=== PATIENT | male | born 1945 | race Caucasian/White ===

== ENCOUNTER → 2017-11-17 | Outpatient (CLI) | payer OTHER ==
[~2017-11-17] MED LIST: 'TENORMIN50 MG PO; ACETAMINOPHEN-O1 TAB PO; AMBIEN10 M1 PO; ASPIRIN81 M1 PO; CARVEDILOL25 MG PO; CIPROFLOXACIN500 MG PO; COLACE100 MG PO; COREG25 MG PO; CRESTOR20 M1 PO; CRESTOR20 MG PO; Clopidogrel75 MG PO; DOCUSATE SODIU100 M2 PO; ECOTRIN ADULT L81 MG PO; FLAGYL500 MG PO; IMDUR SA60 M1 PO; Imdur SA60 MG PO; KLOR-CON 1010 ME1 PO; LANTUS100 U/ML SC; LASIX40 MG PO; LIPITOR80 MG PO; LISINOPRIL5 MG PO; OXYCODONE5 M1 PO; PANTOPRAZOLE SO40 MG PO; PERCOCET 325 MG1 TA7 PO; PLAVIX75 M1 PO; POTASSIUM CHLO10 ME5 PO; PRINIVIL5 M1 PO; RANEXA500 M1 PO; TRAMADOL HCL50 MG PO; ULTRAM50 MG PO; ZESTRIL,PRINIVI10 MG PO; Zofran4 MG PO
== END | disposition home or self-care (01) ==
LOC: US 11-11 11:43
DX: N28.1 Cyst of kidney, acquired (principal); N18.4 Chronic kidney disease, stage 4 (severe)

== ENCOUNTER 2018-02-09 06:52 | Emergency (ER) | payer OTHER ==
[~2018-02-09] VITALS: Ht 180.3 cm; Wt 90.7 kg
[2018-02-09] MEDS ORDERED: Motrin,Rufen800 MG PO (09:35)
[2018-02-09] MEDS ORDERED: PLAVIX75 M1 PO (19:30)
[2018-02-09] MEDS ORDERED: LANTUS SOL100 UNIT/1 SQ (19:30)
[2018-02-09] MEDS ORDERED: CARVEDILOL25 MG PO (19:30)
[2018-02-09] MEDS ORDERED: PANTOPRAZOLE SO40 MG PO (19:30)
[2018-02-09] MEDS ORDERED: LISINOPRIL2.5 MG PO (19:31)
[2018-02-09] MEDS ORDERED: KLOR-CON 1010 ME1 PO (19:31)
[2018-02-09] MEDS ORDERED: LASIX40 MG PO (19:31)
[2018-02-09] MEDS ORDERED: ISOSORBIDE MONO60 MG PO (19:32)
[2018-02-09] MEDS ORDERED: ASPIRIN CHEWABL81 MG PO (19:32)
[2018-02-09] MEDS ORDERED: LIPITOR80 MG PO (19:32)
[2018-02-09] MEDS ORDERED: DULCOLAX5 M1 PO (19:32)
[2018-02-10] MEDS ORDERED: HEPARIN 2,2500 UNIT/ IV (09:52)
== END 2018-02-09 09:51 | disposition home or self-care (01) ==
LOC: ED 06:52
DX: S63.502A Unspecified sprain of left wrist, initial encounter (principal); I50.9 Heart failure, unspecified; Z79.899 Other long term (current) drug therapy; Z79.82 Long term (current) use of aspirin; W01.0XXA Fall on same level from slipping, tripping and stumbling without subsequent striking against object, initial encounter; Y93.89 Activity, other specified; Y92.89 Other specified places as the place of occurrence of the external cause; Y99.8 Other external cause status

== ENCOUNTER 2018-02-09 19:16 | Inpatient (IN) | payer OTHER, MEDICARE ==
[~2018-02-09] VITALS: Ht 180.3 cm; Wt 89.0 kg
--- NOTE | ~2018-02-09 | EKG ---
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
--- NOTE | ~2018-02-09 | EKG ---
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
--- NOTE | ~2018-02-09 | EKG ---
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
--- NOTE | ~2018-02-09 | EKG ---
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
[~2018-02-09 19:16] MED LIST changes: +Motrin,Rufen800 MG PO
[2018-02-09 19:17] VITALS: BP 149/77
[2018-02-09] MEDS ORDERED: PLAVIX75 M1 PO (19:30)
[2018-02-09] MEDS ORDERED: PANTOPRAZOLE SO40 MG PO (19:30)
[2018-02-09] MEDS ORDERED: CARVEDILOL25 MG PO (19:30)
[2018-02-09] MEDS ORDERED: LANTUS SOL100 UNIT/1 SQ (19:30)
[2018-02-09] MEDS ORDERED: KLOR-CON 1010 ME1 PO (19:31)
[2018-02-09] MEDS ORDERED: LASIX40 MG PO (19:31)
[2018-02-09] MEDS ORDERED: LISINOPRIL2.5 MG PO (19:31)
[2018-02-09] MEDS ORDERED: DULCOLAX5 M1 PO (19:32)
[2018-02-09] MEDS ORDERED: ASPIRIN CHEWABL81 MG PO (19:32)
[2018-02-09] MEDS ORDERED: ISOSORBIDE MONO60 MG PO (19:32)
[2018-02-09] MEDS ORDERED: LIPITOR80 MG PO (19:32)
[2018-02-09 19:38] LABS: HEMATOCRIT 38.8 % (42.0-52.0); HEMOGLOBIN 13.2 g/dl (14.0-18.0); MEAN CORPUSCULAR HGB 30.6 pg (27.0-31.0); MEAN PLATELET VOLUME 9.4 fl (9.6-12.3); PLATELET COUNT AUTOMATED 286 10*3/uL (130-400); RED BLOOD COUNT 4.31 10*6/uL (4.50-5.90); RED CELL DISTRI WIDTH 12.8 % (0-14.5); WHITE BLOOD COUNT 14.2 10*3/uL (4.8-10.8)
[2018-02-09 19:51] LABS: ACT PARTIAL THROMBO TIME 24.4 SECONDS (20.8-31.5)
[2018-02-09 19:54] LABS: ALBUMIN 3.2 gm/dl (3.1-4.5); CREATININE 2.3 mg/dL (0.70-1.30); POTASSIUM 4.4 mmol/L (3.5-5.1); TOTAL PROTEIN 7.4 gm/dL (6.4-8.2); TROPONIN I 0.015 ng/ml (<0.045)
[2018-02-09 20:03] LABS: TOTAL CELLS COUNTED 100 #CELLS
[2018-02-09 20:04] LABS: PLATELET SUFFICIENCY NORMAL (NORMAL)
[2018-02-09 20:08] VITALS: BP 142/76
[2018-02-09 20:55] VITALS: BP 153/82
[2018-02-10] VITALS: BP 115/57
[2018-02-10 01:24] LABS: BASO # 0.1 10*3/uL (0.0-0.1); BASO % 0.4 % (0.0-1.0); EOS % 0.2 % (1.0-4.0); HEMATOCRIT 36.6 % (42.0-52.0); HEMOGLOBIN 12.4 g/dl (14.0-18.0); LYMPH # 1.3 10*3/uL (1.3-4.4); LYMPH % 11.4 % (27.0-41.0); MEAN CELL VOLUME 89.7 fl (80.0-94.0); MEAN CORPUSCULAR HGB 30.4 pg (27.0-31.0); MEAN CORPUSCULAR HGB CONC 33.9 g/dl (33.0-37.0); MEAN PLATELET VOLUME 9.2 fl (9.6-12.3); MONO # 1.1 10*3/uL (0.1-1.0); MONO % 9.2 % (3.0-9.0); NEUT # 9.1 10*3/uL (2.3-7.9); NEUT % 78.4 % (47.0-73.0); PLATELET COUNT AUTOMATED 257 10*3/uL (130-400); RED BLOOD COUNT 4.08 10*6/uL (4.50-5.90); RED CELL DISTRI WIDTH 12.7 % (0-14.5); WHITE BLOOD COUNT 11.6 10*3/uL (4.8-10.8)
[2018-02-10 01:37] LABS: CREATININE 2.23 mg/dL (0.70-1.30); POTASSIUM 3.9 mmol/L (3.5-5.1)
[2018-02-10 01:41] LABS: FREE T4 0.78 ng/dl (0.76-1.46); PHOSPHOROUS 2.4 mg/dL (2.5-4.9)
[2018-02-10 01:48] LABS: THYROID STIM HORMONE (HS) 1.5 uIU/ml (0.358-4.75)
[2018-02-10 04:00] VITALS: BP 90/66
[2018-02-10 07:08] LABS: VITAMIN D, 25-HYDROXY 28.3 ng/mL (30-100)
[2018-02-10 08:00] VITALS: BP 114/60
[2018-02-10] MEDS ORDERED: HEPARIN 2,2500 UNIT/ IV (09:52)
== END 2018-02-10 11:23 | disposition short-term general hospital (02) | DRG 280 ==
LOC: ED 19:16 → EDHOLD 20:16 → 4E 20:32
PROVIDERS: Emergency Medicine; Student in an Organized Health Care Education/Training Program
DX: I21.4 Non-ST elevation (NSTEMI) myocardial infarction (principal); N17.0 Acute kidney failure with tubular necrosis; E87.1 Hypo-osmolality and hyponatremia; I50.42 Chronic combined systolic (congestive) and diastolic (congestive) heart failure; I42.9 Cardiomyopathy, unspecified; I13.0 Hypertensive heart and chronic kidney disease with heart failure and stage 1 through stage 4 chronic kidney disease, or unspecified chronic kidney disease; I25.10 Atherosclerotic heart disease of native coronary artery without angina pectoris; E78.5 Hyperlipidemia, unspecified; E11.65 Type 2 diabetes mellitus with hyperglycemia; F17.200 Nicotine dependence, unspecified, uncomplicated; D72.829 Elevated white blood cell count, unspecified; D64.9 Anemia, unspecified; E87.8 Other disorders of electrolyte and fluid balance, not elsewhere classified; K21.9 Gastro-esophageal reflux disease without esophagitis; I44.7 Left bundle-branch block, unspecified; N18.3 Chronic kidney disease, stage 3 (moderate); E11.22 Type 2 diabetes mellitus with diabetic chronic kidney disease; G89.4 Chronic pain syndrome; Z82.49 Family history of ischemic heart disease and other diseases of the circulatory system; I25.2 Old myocardial infarction; Z95.1 Presence of aortocoronary bypass graft; Z79.82 Long term (current) use of aspirin; Z79.4 Long term (current) use of insulin; Z71.6 Tobacco abuse counseling; Z79.899 Other long term (current) drug therapy

== ENCOUNTER 2018-02-13 04:35 | Inpatient (IN) | payer OTHER, MEDICARE ==
[~2018-02-13] VITALS: Ht 180.3 cm; Wt 90.7 kg
--- NOTE | ~2018-02-13 | EKG ---
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
[2018-02-13 04:35] VITALS: BP 144/83
[~2018-02-13 04:35] MED LIST changes: +ASPIRIN CHEWABL81 MG PO; +DULCOLAX5 M1 PO; +HEPARIN 2,2500 UNIT/ IV; +ISOSORBIDE MONO60 MG PO; +LANTUS SOL100 UNIT/1 SQ; +LISINOPRIL2.5 MG PO
[2018-02-13 05:16] LABS: BASO # 0.1 10*3/uL (0.0-0.1); BASO % 0.5 % (0.0-1.0); EOS # 0.4 10*3/uL (0.0-0.4); EOS % 2.7 % (1.0-4.0); HEMATOCRIT 36.6 % (42.0-52.0); HEMOGLOBIN 12.5 g/dl (14.0-18.0); LYMPH # 1.1 10*3/uL (1.3-4.4); LYMPH % 7.3 % (27.0-41.0); MEAN CELL VOLUME 90.4 fl (80.0-94.0); MEAN CORPUSCULAR HGB 30.9 pg (27.0-31.0); MEAN CORPUSCULAR HGB CONC 34.2 g/dl (33.0-37.0); MEAN PLATELET VOLUME 9.8 fl (9.6-12.3); MONO % 7.1 % (3.0-9.0); PLATELET COUNT AUTOMATED 306 10*3/uL (130-400); RED BLOOD COUNT 4.05 10*6/uL (4.50-5.90); RED CELL DISTRI WIDTH 12.7 % (0-14.5); WHITE BLOOD COUNT 14.6 10*3/uL (4.8-10.8)
[2018-02-13 05:33] LABS: ALBUMIN 2.9 gm/dl (3.1-4.5); CREATININE 1.87 mg/dL (0.70-1.30); POTASSIUM 4.2 mmol/L (3.5-5.1); TOTAL PROTEIN 7.3 gm/dL (6.4-8.2)
[2018-02-13 05:36] LABS: TROPONIN I 0.316 ng/ml (<0.045)
[2018-02-13 06:58] VITALS: BP 140/76
[2018-02-13 12:00] VITALS: BP 133/61
[2018-02-13 15:44] LABS: ACT PARTIAL THROMBO TIME 27.5 SECONDS (20.8-31.5)
[2018-02-13 16:00] VITALS: BP 114/53
== END 2018-02-13 17:00 | disposition short-term general hospital (02) | DRG 280 ==
LOC: ED 04:35 → 4E 05:55 → EDHOLD 05:55 → 4E 06:04
PROVIDERS: Emergency Medicine; Internal Medicine Cardiovascular Disease
DX: I21.4 Non-ST elevation (NSTEMI) myocardial infarction (principal); I50.43 Acute on chronic combined systolic (congestive) and diastolic (congestive) heart failure; E87.1 Hypo-osmolality and hyponatremia; I42.9 Cardiomyopathy, unspecified; E44.0 Moderate protein-calorie malnutrition; I13.0 Hypertensive heart and chronic kidney disease with heart failure and stage 1 through stage 4 chronic kidney disease, or unspecified chronic kidney disease; E11.65 Type 2 diabetes mellitus with hyperglycemia; E11.22 Type 2 diabetes mellitus with diabetic chronic kidney disease; E78.2 Mixed hyperlipidemia; G89.4 Chronic pain syndrome; D72.829 Elevated white blood cell count, unspecified; D64.9 Anemia, unspecified; I25.10 Atherosclerotic heart disease of native coronary artery without angina pectoris; K21.9 Gastro-esophageal reflux disease without esophagitis; N18.3 Chronic kidney disease, stage 3 (moderate); I25.2 Old myocardial infarction; Z95.1 Presence of aortocoronary bypass graft; Z87.891 Personal history of nicotine dependence; Z79.4 Long term (current) use of insulin; Z82.49 Family history of ischemic heart disease and other diseases of the circulatory system; Z79.82 Long term (current) use of aspirin; Z79.899 Other long term (current) drug therapy; Z68.27 Body mass index [BMI] 27.0-27.9, adult

== ENCOUNTER 2018-02-26 17:25 | Inpatient (IN) | payer OTHER, MEDICARE ==
[~2018-02-26] VITALS: Ht 180.3 cm; Wt 93.9 kg
--- NOTE | ~2018-02-26 | EKG ---
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
--- NOTE | ~2018-02-26 | CON ---
[place], [place] REPORT OF CONSULTATION NAME: SUNNY MANCIA [facility] #: [id number] UNIT #: [id number] ROOM: 421 DOCTOR: JANNA MCCURDY MD BIRTHDATE: [birth year] DOS: 02/28/2018 CHIEF COMPLAINT: Left elbow pain. HISTORY OF PRESENT ILLNESS: This is a pleasant 72-year-old man admitted to the hospital with shortness of breath, who had a fall associated with left elbow pain. Of note, he is status post ORIF of the left proximal radius fracture fixed many years ago. As a result of that injury, he has got almost no supination of his elbow. Currently, the patient does not complain of any pain in the left elbow. He reports the pain is a 1 on a scale of 1-10 with 10 being the worst. No numbness or tingling in the hand. No pain in the left wrist. No pain in the left shoulder. No pain in the right arm. No fevers. No chills. He is not in any kind of immobilization. Pain does not radiate anywhere. PAST MEDICAL AND SURGICAL HISTORY: 1. Coronary artery disease. 2. Cardiomyopathy. 3. Congestive heart failure. 4. Hyperlipidemia. 5. History of acute kidney failure. 6. Status post left arm surgery in the . 7. Status post coronary artery bypass graft x 5 in 2008. SOCIAL HISTORY: No cigarette smoking. No alcohol use. No illicit drug use. He does chew tobacco products. ALLERGIES TO MEDICINES: None. REVIEW OF SYSTEMS: I conducted a 12-point review of systems, which is negative except for pertinent positives listed in history of present illness. PHYSICAL EXAMINATION: GENERAL APPEARANCE: Is well. He is oriented to person, place and time. PSYCHIATRIC: His mood is euthymic. His affect is appropriate. MUSCULOSKELETAL: Examination of the left elbow, he has got an IV in the antecubital fossa. All compartments in the arm and forearm are soft. There was 0 tenderness to palpation about the elbow. He is nontender over the radial head. I palpated directly and there is no pain. He has got very limited supination. Specifically, he has 0 degrees of supination. He has got about 50 degrees of pronation. He has 5/5 strength with resisted pronation and with resisted motion in the supination direction. 5/5 strength with resisted flexion and extension across the left elbow. Left wrist shows no tenderness to palpation. He has a palpable radial pulse. He feels light touch sensation throughout his hand. I examined the right upper extremity. It is atraumatic with no tenderness to palpation throughout the right wrist nor right elbow. IMAGES: I examined the left elbow x-rays. He has got arthritis through the [place], [place] REPORT OF CONSULTATION NAME: SUNNY MANCIA UNIT #: [id number] ROOM: 421 DOCTOR: JANNA MCCURDY MD BIRTHDATE: [birth year] elbow joint. He has got postoperative changes consistent with previous ORIF of the proximal radius. The official read of the film is a nondisplaced radial head fracture but I do not appreciate this on my interpretation of the films. ASSESSMENT: A 72-year-old man, possible nondisplaced left elbow radial head fracture, but most likely a simple elbow contusion. As noted, I do not see a convincing image of the radial head fracture. I was considering ordering a CT scan to be sure of the left elbow, but his exam is so benign and he has such good motion and so little pain with palpation that I think we should just leave it be. PLAN: As follows: 1. Weightbearing as tolerated, left arm. 2. No immobilization of left arm necessary. 3. Follow up in the Orthopedic Clinic as needed if he develops left elbow pain. I reviewed this treatment plan with the patient. He understands and is in agreement with it. There are risks that he does indeed have an occult radial head fracture, which gets worse with time. If it does get worse, he should get a repeat x-ray, possibly even a CT scan of the left elbow, with followup in the orthopedic surgery clinic as needed. The patient had the opportunity to ask me questions and he understands and agrees with the treatment plan as I have outlined it. Janna Mccurdy MD CM:CONSTR:REPORT OF CONSULTATION 1028 02/28/18 1500 interface
[2018-02-26 17:27] VITALS: BP 133/72
[2018-02-26 17:57] LABS: BASO # 0.1 10*3/uL (0.0-0.1); BASO % 0.8 % (0.0-1.0); EOS # 0.3 10*3/uL (0.0-0.4); HEMATOCRIT 31.4 % (42.0-52.0); HEMOGLOBIN 10.3 g/dl (14.0-18.0); LYMPH # 1.6 10*3/uL (1.3-4.4); LYMPH % 18.4 % (27.0-41.0); MEAN CELL VOLUME 91.8 fl (80.0-94.0); MEAN CORPUSCULAR HGB 30.1 pg (27.0-31.0); MEAN CORPUSCULAR HGB CONC 32.8 g/dl (33.0-37.0); MEAN PLATELET VOLUME 8.5 fl (9.6-12.3); MONO # 0.7 10*3/uL (0.1-1.0); MONO % 8.4 % (3.0-9.0); NEUT % 68.7 % (47.0-73.0); PLATELET COUNT AUTOMATED 379 10*3/uL (130-400); RED BLOOD COUNT 3.42 10*6/uL (4.50-5.90); RED CELL DISTRI WIDTH 13.6 % (0-14.5); WHITE BLOOD COUNT 8.8 10*3/uL (4.8-10.8)
[2018-02-26 18:13] LABS: ALBUMIN 3.1 gm/dl (3.1-4.5); CREATININE 2.34 mg/dL (0.70-1.30); POTASSIUM 3.9 mmol/L (3.5-5.1); TOTAL PROTEIN 7.2 gm/dL (6.4-8.2)
[2018-02-26 18:22] LABS: TROPONIN I 0.457 ng/ml (<0.045)
[2018-02-26 19:15] VITALS: BP 124/71
[2018-02-26 20:10] VITALS: BP 118/77
[2018-02-26 20:46] VITALS: BP 118/77
[2018-02-27] VITALS: BP 108/60
[2018-02-27 06:10] LABS: CREATININE 1.88 mg/dL (0.70-1.30); PHOSPHOROUS 3.5 mg/dL (2.5-4.9); POTASSIUM 3.7 mmol/L (3.5-5.1)
[2018-02-27 06:21] LABS: BASO # 0.1 10*3/uL (0.0-0.1); BASO % 0.9 % (0.0-1.0); EOS # 0.2 10*3/uL (0.0-0.4); EOS % 2.2 % (1.0-4.0); HEMATOCRIT 32.2 % (42.0-52.0); HEMOGLOBIN 10.6 g/dl (14.0-18.0); LYMPH # 1.2 10*3/uL (1.3-4.4); LYMPH % 11.7 % (27.0-41.0); MEAN CELL VOLUME 92.3 fl (80.0-94.0); MEAN CORPUSCULAR HGB 30.4 pg (27.0-31.0); MEAN CORPUSCULAR HGB CONC 32.9 g/dl (33.0-37.0); MEAN PLATELET VOLUME 9.1 fl (9.6-12.3); MONO # 0.8 10*3/uL (0.1-1.0); MONO % 7.9 % (3.0-9.0); NEUT % 76.9 % (47.0-73.0); PLATELET COUNT AUTOMATED 391 10*3/uL (130-400); RED BLOOD COUNT 3.49 10*6/uL (4.50-5.90); RED CELL DISTRI WIDTH 13.6 % (0-14.5); WHITE BLOOD COUNT 10.4 10*3/uL (4.8-10.8)
[2018-02-27 06:55] LABS: TROPONIN I 0.399 ng/ml (<0.045)
[2018-02-27 08:05] VITALS: BP 112/76
[2018-02-27 12:00] VITALS: BP 117/71
[2018-02-27 16:00] VITALS: BP 111/60
[2018-02-27 20:00] VITALS: BP 118/68
[2018-02-28] VITALS: BP 134/70
[2018-02-28 07:24] LABS: ALBUMIN 2.9 gm/dl (3.1-4.5); CREATININE 1.93 mg/dL (0.70-1.30); PHOSPHOROUS 3.2 mg/dL (2.5-4.9); POTASSIUM 3.7 mmol/L (3.5-5.1); TOTAL PROTEIN 6.9 gm/dL (6.4-8.2)
[2018-02-28 08:00] VITALS: BP 131/75
[2018-02-28 12:00] VITALS: BP 132/83
[2018-02-28 16:00] VITALS: BP 120/59
[2018-02-28 20:00] VITALS: BP 115/60
[2018-03-01] VITALS: BP 99/43
[2018-03-01 06:30] VITALS: BP 119/66
[2018-03-01 08:00] VITALS: BP 122/66
[2018-03-01] MEDS ORDERED: LASIX40 MG PO (08:07)
[2018-03-01] MEDS ORDERED: K-TAB20 MEQ PO (08:07)
[2018-03-02] MEDS ORDERED: RESTORIL15 MG PO (10:51)
== END 2018-03-01 12:30 | disposition home or self-care (01) | DRG 291 ==
LOC: ED 17:25 → EDHOLD 19:47 → 4E 19:47
PROVIDERS: Physician Assistant; Registered Nurse; Student in an Organized Health Care Education/Training Program
DX: I13.0 Hypertensive heart and chronic kidney disease with heart failure and stage 1 through stage 4 chronic kidney disease, or unspecified chronic kidney disease (principal); I50.43 Acute on chronic combined systolic (congestive) and diastolic (congestive) heart failure; E44.0 Moderate protein-calorie malnutrition; N18.3 Chronic kidney disease, stage 3 (moderate); E11.22 Type 2 diabetes mellitus with diabetic chronic kidney disease; E78.5 Hyperlipidemia, unspecified; I42.9 Cardiomyopathy, unspecified; G89.4 Chronic pain syndrome; E11.65 Type 2 diabetes mellitus with hyperglycemia; D64.9 Anemia, unspecified; K21.9 Gastro-esophageal reflux disease without esophagitis; I25.10 Atherosclerotic heart disease of native coronary artery without angina pectoris; R74.8 Abnormal levels of other serum enzymes; Z79.82 Long term (current) use of aspirin; Z95.1 Presence of aortocoronary bypass graft; Z82.49 Family history of ischemic heart disease and other diseases of the circulatory system; Z83.3 Family history of diabetes mellitus; Z72.0 Tobacco use; I25.2 Old myocardial infarction; Z68.27 Body mass index [BMI] 27.0-27.9, adult; Z79.899 Other long term (current) drug therapy; Z79.4 Long term (current) use of insulin

== ENCOUNTER 2018-03-01 21:29 | Inpatient (IN) | payer OTHER, MEDICARE ==
[~2018-03-01] VITALS: Ht 180.3 cm; Wt 94.4 kg
--- NOTE | ~2018-03-01 | EKG ---
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
[~2018-03-01 21:29] MED LIST changes: +K-TAB20 MEQ PO
[2018-03-01 21:33] VITALS: BP 127/67
[2018-03-01 22:08] LABS: BASO # 0.1 10*3/uL (0.0-0.1); BASO % 0.8 % (0.0-1.0); EOS # 0.3 10*3/uL (0.0-0.4); EOS % 2.2 % (1.0-4.0); HEMATOCRIT 32.6 % (42.0-52.0); HEMOGLOBIN 10.8 g/dl (14.0-18.0); LYMPH # 1.7 10*3/uL (1.3-4.4); LYMPH % 14.1 % (27.0-41.0); MEAN CELL VOLUME 92.1 fl (80.0-94.0); MEAN CORPUSCULAR HGB 30.5 pg (27.0-31.0); MEAN CORPUSCULAR HGB CONC 33.1 g/dl (33.0-37.0); MEAN PLATELET VOLUME 8.7 fl (9.6-12.3); MONO # 0.9 10*3/uL (0.1-1.0); MONO % 7.9 % (3.0-9.0); NEUT # 8.9 10*3/uL (2.3-7.9); NEUT % 74.6 % (47.0-73.0); PLATELET COUNT AUTOMATED 346 10*3/uL (130-400); RED BLOOD COUNT 3.54 10*6/uL (4.50-5.90); RED CELL DISTRI WIDTH 13.2 % (0-14.5); WHITE BLOOD COUNT 11.9 10*3/uL (4.8-10.8)
[2018-03-01 22:25] LABS: ALBUMIN 3.1 gm/dl (3.1-4.5); CREATININE 1.77 mg/dL (0.70-1.30); POTASSIUM 3.6 mmol/L (3.5-5.1); TOTAL PROTEIN 7.5 gm/dL (6.4-8.2)
[2018-03-01 22:28] LABS: TROPONIN I 0.119 ng/ml (<0.045)
[2018-03-01 23:10] VITALS: BP 123/71
[2018-03-02 00:26] VITALS: BP 117/69
[2018-03-02 01:30] VITALS: BP 119/71
[2018-03-02 04:48] LABS: BASO # 0.1 10*3/uL (0.0-0.1); BASO % 0.6 % (0.0-1.0); EOS # 0.3 10*3/uL (0.0-0.4); EOS % 2.6 % (1.0-4.0); HEMATOCRIT 33.3 % (42.0-52.0); HEMOGLOBIN 10.7 g/dl (14.0-18.0); LYMPH # 1.6 10*3/uL (1.3-4.4); LYMPH % 13.3 % (27.0-41.0); MEAN CELL VOLUME 92.2 fl (80.0-94.0); MEAN CORPUSCULAR HGB 29.6 pg (27.0-31.0); MEAN CORPUSCULAR HGB CONC 32.1 g/dl (33.0-37.0); MONO % 8.3 % (3.0-9.0); NEUT # 9.1 10*3/uL (2.3-7.9); NEUT % 74.8 % (47.0-73.0); PLATELET COUNT AUTOMATED 366 10*3/uL (130-400); RED BLOOD COUNT 3.61 10*6/uL (4.50-5.90); RED CELL DISTRI WIDTH 13.4 % (0-14.5); WHITE BLOOD COUNT 12.1 10*3/uL (4.8-10.8)
[2018-03-02 05:03] LABS: CREATININE 1.6 mg/dL (0.70-1.30); POTASSIUM 3.7 mmol/L (3.5-5.1)
[2018-03-02 05:14] LABS: TROPONIN I 0.112 ng/ml (<0.045)
[2018-03-02 08:00] VITALS: BP 122/66
[2018-03-02] MEDS ORDERED: RESTORIL15 MG PO (10:51)
== END 2018-03-02 11:40 | disposition home or self-care (01) | DRG 392 ==
LOC: ED 21:29 → 5E 03-02 00:37
PROVIDERS: Emergency Medicine; Internal Medicine
DX: K59.01 Slow transit constipation (principal); I13.0 Hypertensive heart and chronic kidney disease with heart failure and stage 1 through stage 4 chronic kidney disease, or unspecified chronic kidney disease; I42.9 Cardiomyopathy, unspecified; I50.42 Chronic combined systolic (congestive) and diastolic (congestive) heart failure; I25.10 Atherosclerotic heart disease of native coronary artery without angina pectoris; E78.5 Hyperlipidemia, unspecified; N18.3 Chronic kidney disease, stage 3 (moderate); E11.65 Type 2 diabetes mellitus with hyperglycemia; K57.90 Diverticulosis of intestine, part unspecified, without perforation or abscess without bleeding; D64.9 Anemia, unspecified; T40.605A Adverse effect of unspecified narcotics, initial encounter; E66.3 Overweight; E11.22 Type 2 diabetes mellitus with diabetic chronic kidney disease; D72.829 Elevated white blood cell count, unspecified; K21.9 Gastro-esophageal reflux disease without esophagitis; G89.4 Chronic pain syndrome; Z87.81 Personal history of (healed) traumatic fracture; I25.2 Old myocardial infarction; Z95.1 Presence of aortocoronary bypass graft; Z82.49 Family history of ischemic heart disease and other diseases of the circulatory system; Z91.14 Patient's other noncompliance with medication regimen; Z79.82 Long term (current) use of aspirin; Z79.4 Long term (current) use of insulin; Z79.899 Other long term (current) drug therapy; Z83.3 Family history of diabetes mellitus; Z95.5 Presence of coronary angioplasty implant and graft; Y92.89 Other specified places as the place of occurrence of the external cause; Z68.28 Body mass index [BMI] 28.0-28.9, adult

== ENCOUNTER 2018-03-25 22:06 | Inpatient (IN) | payer OTHER, MEDICARE ==
[~2018-03-25] VITALS: Ht 180.3 cm; Wt 81.7 kg
--- NOTE | ~2018-03-25 | EKG ---
[place], [place] ELECTROCARDIOGRAM REPORT NAME: SUNNY MANCIA UNIT #: [id number] ROOM: 510 DOCTOR: EPIPHANY DRAFT REPORT BIRTHDATE: [birth year] [facility] Test Date: 2018-03-25 Test Time: 22:32:42 Pat Name: SUNNY MANCIA Department: ER Room: 510 Gender: M Md Pediatric Allergist: Lisa Peter : 1945 Requested By: RORO CASE Order Number: [id number] Reading MD: Abdirahman Kaur MD Measurements Intervals [place] Rate: 72 P: 29 [place]: 178 QRS: 6 QRSD: 181 T: 174 QT: 498 QTc: 546 Interpretive Statements Sinus rhythm Left atrial enlargement Left bundle branch block Baseline wander in lead(s) V4 Compared to ECG 03/01/2018 21:49:29 No significant changes Electronically Signed On 03-27-2018 12:35:26 PST by Abdirahman Kaur MD CM:EKGRPT:ELECTROCARDIOGRAM REPORT 31 1235 RORO CASE MD EPIPHANY DRAFT REPORT RORO CASE MD
--- NOTE | ~2018-03-25 | CON ---
[place], [place] REPORT OF CONSULTATION NAME: SUNNY MANCIA [facility] #: [id number] UNIT #: [id number] ROOM: 510 DOCTOR: SHIKHA SHANE DPM BIRTHDATE: [birth year] DOS: SUBJECTIVE: The patient presents as a 72-year-old male with chief complaint of ulcerations, dorsal aspect, bilateral foot. PAST MEDICAL HISTORY: Coronary artery disease, cardiomyopathy, chronic pain syndrome, chronic kidney disease stage 3, diverticulitis, combined congestive systolic and diastolic heart failure, essential hypertension, fracture radial head, GERD, hyperlipidemia, insomnia, medical noncompliance, protein-calorie malnutrition, normocytic anemia, non-ST elevated IA, overweight, tobacco abuse, diabetes. PAST SURGICAL HISTORY: Angioplasty, cardiac cath, heart stent, CABG x 5. SOCIAL HISTORY: Chews tobacco. Denies alcohol or illicit drug use. Former smoker. PHYSICAL EXAMINATION: LOWER EXTREMITIES: Pedal pulses diminished bilateral, decreased hair growth bilateral, ulcerations full thickness dorsal aspect bilateral foot with localized erythema. No signs of fluctuance. No signs of purulent drainage or foul odor. IMAGIN. Venous Doppler negative for DVT bilateral. 2. Arterial Doppler bilateral reveals monophasic waveforms. Hemodynamically significant stenosis, left popliteal. Scattered calcified arteriosclerotic disease. 3. Foot views bilateral radiographs reveal minimal soft tissue swelling associated with cellulitis. Bones without visualized osseous, lytic or erosive lesions. ASSESSMENT: Diabetic ulcerations dorsal bilateral foot cellulitis with a wound culture revealing methicillin-resistant Staphylococcus aureus, peripheral vascular disease. PLAN: Evaluation and management. The patient is being discharged later today. The patient needs to follow up for wound care and also we will set up a vascular consultation for the patient. Infectious Disease will prescribe antibiotics and the patient will be seen for outpatient followup. [place], [place] REPORT OF CONSULTATION NAME: SUNNY MANCIA UNIT #: [id number] ROOM: 510 DOCTOR: SHIKHA SHANE DPM BIRTHDATE: [birth year] SHIKHA SHANE DPM CM:CONSTR:REPORT OF CONSULTATION 1151 03/29/18 0259 interface
[~2018-03-25 22:06] MED LIST changes: +RESTORIL15 MG PO
[2018-03-25 22:13] VITALS: BP 103/67
[2018-03-25 22:38] LABS: BASO # 0.1 10*3/uL (0.0-0.1); BASO % 0.5 % (0.0-1.0); EOS # 0.1 10*3/uL (0.0-0.4); EOS % 0.7 % (1.0-4.0); HEMATOCRIT 37.2 % (42.0-52.0); HEMOGLOBIN 12.6 g/dl (14.0-18.0); LYMPH % 8.2 % (27.0-41.0); MEAN CELL VOLUME 84.7 fl (80.0-94.0); MEAN CORPUSCULAR HGB 28.7 pg (27.0-31.0); MEAN CORPUSCULAR HGB CONC 33.9 g/dl (33.0-37.0); MEAN PLATELET VOLUME 9.6 fl (9.6-12.3); MONO # 0.9 10*3/uL (0.1-1.0); MONO % 7.2 % (3.0-9.0); NEUT # 10.4 10*3/uL (2.3-7.9); NEUT % 83.2 % (47.0-73.0); PLATELET COUNT AUTOMATED 456 10*3/uL (130-400); RED BLOOD COUNT 4.39 10*6/uL (4.50-5.90); RED CELL DISTRI WIDTH 13.2 % (0-14.5); WHITE BLOOD COUNT 12.5 10*3/uL (4.8-10.8)
[2018-03-25 22:54] LABS: ALBUMIN 3.2 gm/dl (3.1-4.5); ALKALINE PHOSPHATASE 107 U/L (45-117); BUN 60 mg/dl (7-24); CREATININE 3.33 mg/dL (0.70-1.30); LIPASE 98 U/L (73-393); POTASSIUM 3.1 mmol/L (3.5-5.1); SGOT/AST 8 IU/L (3-35); SGPT/ALT 15 U/L (12-78); SODIUM 120 mmol/L (136-145)
[2018-03-25 22:57] LABS: TROPONIN I < 0.015 ng/ml (<0.045)
[2018-03-25 22:59] LABS: CHLORIDE 74 mmol/L (98-107)
[2018-03-25 23:10] VITALS: BP 111/58
[2018-03-26] VITALS (9 sets, daily range): BP systolic 96–118; BP diastolic 55–69
[2018-03-26] LABS: BILIRUBIN NEGATIVE (NEGATIVE); BLOOD NEGATIVE (NEGATIVE); CLARITY CLEAR (CLEAR); COLOR YELLOW (YELLOW); GLUCOSE 3+ (NEGATIVE); KETONE NEGATIVE (NEGATIVE); LEUKO ESTERASE NEGATIVE (NEGATIVE); NITRITE NEGATIVE (NEGATIVE); SPECIFIC GRAVITY <= 1.005 (1.005-1.030); UROBILINOGEN 0.2 E.U./dl (0.2-1.0)
[2018-03-26 00:09] LABS: BACTERIA TRACE; EPITHELIAL CELLS 0-2; MUCOUS 1+; WBC 0-2 wbc/hpf (0-5)
[2018-03-26 01:30] LABS: CREATININE 3.09 mg/dL (0.70-1.30); POTASSIUM 2.7 mmol/L (3.5-5.1)
[2018-03-26 05:57] LABS: BASO # 0.1 10*3/uL (0.0-0.1); BASO % 0.8 % (0.0-1.0); EOS # 0.1 10*3/uL (0.0-0.4); EOS % 1.1 % (1.0-4.0); HEMATOCRIT 38.7 % (42.0-52.0); HEMOGLOBIN 13.2 g/dl (14.0-18.0); LYMPH # 1.3 10*3/uL (1.3-4.4); LYMPH % 11.5 % (27.0-41.0); MEAN CELL VOLUME 85.1 fl (80.0-94.0); MEAN CORPUSCULAR HGB CONC 34.1 g/dl (33.0-37.0); MEAN PLATELET VOLUME 9.3 fl (9.6-12.3); MONO # 0.9 10*3/uL (0.1-1.0); MONO % 8.1 % (3.0-9.0); NEUT # 8.7 10*3/uL (2.3-7.9); NEUT % 78.1 % (47.0-73.0); PLATELET COUNT AUTOMATED 388 10*3/uL (130-400); RED BLOOD COUNT 4.55 10*6/uL (4.50-5.90); RED CELL DISTRI WIDTH 13.1 % (0-14.5); WHITE BLOOD COUNT 11.2 10*3/uL (4.8-10.8)
[2018-03-26 06:25] LABS: CREATININE 2.81 mg/dL (0.70-1.30); POTASSIUM 3.2 mmol/L (3.5-5.1)
[2018-03-26] MEDS ORDERED: TEMAZEPAM30 MG PO (07:26)
[2018-03-26] MEDS ORDERED: METOLAZONE2.5 MG PO (07:26)
[2018-03-26] MEDS ORDERED: PERCOCET 10-321 EACH PO (07:28)
[2018-03-26] MEDS ORDERED: TRAMADOL HCL50 MG PO (07:29)
[2018-03-26] MEDS ORDERED: VITAMIN D32000 UNI1 PO (07:30)
[2018-03-26] MEDS ORDERED: APRESOLINE10 MG PO (07:32)
[2018-03-26] MEDS ORDERED: K-TAB10 MEQ PO (08:16)
[2018-03-26] MEDS ORDERED: FUROSEMIDE40 MG PO (08:19)
[2018-03-26 10:21] LABS: CREATININE 2.6 mg/dL (0.70-1.30); POTASSIUM 3.2 mmol/L (3.5-5.1)
[2018-03-26 14:21] LABS: CREATININE 2.48 mg/dL (0.70-1.30); POTASSIUM 3.6 mmol/L (3.5-5.1)
[2018-03-26 18:10] LABS: CREATININE 2.33 mg/dL (0.70-1.30); POTASSIUM 3.8 mmol/L (3.5-5.1)
[2018-03-26 22:14] LABS: CREATININE 2.25 mg/dL (0.70-1.30); POTASSIUM 3.9 mmol/L (3.5-5.1)
[2018-03-27] VITALS: BP 110/68
[2018-03-27 05:30] VITALS: BP 106/52
[2018-03-27 07:13] LABS: BASO # 0.1 10*3/uL (0.0-0.1); BASO % 0.6 % (0.0-1.0); EOS # 0.3 10*3/uL (0.0-0.4); EOS % 2.7 % (1.0-4.0); HEMATOCRIT 33.8 % (42.0-52.0); HEMOGLOBIN 11.2 g/dl (14.0-18.0); LYMPH # 1.5 10*3/uL (1.3-4.4); LYMPH % 15.5 % (27.0-41.0); MEAN CELL VOLUME 87.8 fl (80.0-94.0); MEAN CORPUSCULAR HGB 29.1 pg (27.0-31.0); MEAN CORPUSCULAR HGB CONC 33.1 g/dl (33.0-37.0); MEAN PLATELET VOLUME 9.7 fl (9.6-12.3); MONO # 0.7 10*3/uL (0.1-1.0); MONO % 7.8 % (3.0-9.0); NEUT # 6.8 10*3/uL (2.3-7.9); NEUT % 72.9 % (47.0-73.0); PLATELET COUNT AUTOMATED 374 10*3/uL (130-400); RED BLOOD COUNT 3.85 10*6/uL (4.50-5.90); RED CELL DISTRI WIDTH 13.2 % (0-14.5); WHITE BLOOD COUNT 9.4 10*3/uL (4.8-10.8)
[2018-03-27 07:42] LABS: ALBUMIN 2.6 gm/dl (3.1-4.5); POTASSIUM 3.5 mmol/L (3.5-5.1)
[2018-03-27 07:45] LABS: CREATININE 2.02 mg/dL (0.70-1.30); TOTAL PROTEIN 7.2 gm/dL (6.4-8.2)
[2018-03-27 08:20] VITALS: BP 116/58
[2018-03-27 12:00] VITALS: BP 142/64
[2018-03-27 16:00] VITALS: BP 122/63
[2018-03-27 20:00] VITALS: BP 118/57
[2018-03-28] VITALS: BP 109/84
[2018-03-28 05:30] VITALS: BP 122/77
[2018-03-28 06:37] LABS: CREATININE 1.71 mg/dL (0.70-1.30); POTASSIUM 3.4 mmol/L (3.5-5.1)
[2018-03-28 08:00] VITALS: BP 118/65
[2018-03-28 12:00] VITALS: BP 116/72
[2018-03-28] MEDS ORDERED: Humalog SQ (13:28)
[2018-03-28] MEDS ORDERED: DOXYCYCLINE100 M3 PO (13:28)
== END 2018-03-28 14:59 | disposition home health service (06) | DRG 682 ==
LOC: ED 22:06 → 5E 03-26 00:56 → EDHOLD 03-26 00:56 → ICCU 03-26 01:07 → 5E 03-26 13:49
PROVIDERS: Emergency Medicine Emergency Medical Services; Family Medicine; Internal Medicine
DX: N17.0 Acute kidney failure with tubular necrosis (principal); E11.01 Type 2 diabetes mellitus with hyperosmolarity with coma; E87.2 Acidosis; E87.1 Hypo-osmolality and hyponatremia; I42.9 Cardiomyopathy, unspecified; I50.42 Chronic combined systolic (congestive) and diastolic (congestive) heart failure; I25.810 Atherosclerosis of coronary artery bypass graft(s) without angina pectoris; E44.1 Mild protein-calorie malnutrition; I13.0 Hypertensive heart and chronic kidney disease with heart failure and stage 1 through stage 4 chronic kidney disease, or unspecified chronic kidney disease; L03.116 Cellulitis of left lower limb; L03.115 Cellulitis of right lower limb; E87.6 Hypokalemia; E11.51 Type 2 diabetes mellitus with diabetic peripheral angiopathy without gangrene; B95.62 Methicillin resistant Staphylococcus aureus infection as the cause of diseases classified elsewhere; D72.825 Bandemia; E11.621 Type 2 diabetes mellitus with foot ulcer; L97.529 Non-pressure chronic ulcer of other part of left foot with unspecified severity; L97.519 Non-pressure chronic ulcer of other part of right foot with unspecified severity; D47.3 Essential (hemorrhagic) thrombocythemia; G89.4 Chronic pain syndrome; E78.5 Hyperlipidemia, unspecified; K21.9 Gastro-esophageal reflux disease without esophagitis; E11.65 Type 2 diabetes mellitus with hyperglycemia; E80.6 Other disorders of bilirubin metabolism; N18.3 Chronic kidney disease, stage 3 (moderate); D64.9 Anemia, unspecified; E66.3 Overweight; E87.8 Other disorders of electrolyte and fluid balance, not elsewhere classified; E83.41 Hypermagnesemia; Z72.0 Tobacco use; Z79.4 Long term (current) use of insulin; I25.2 Old myocardial infarction; Z95.5 Presence of coronary angioplasty implant and graft; Z95.1 Presence of aortocoronary bypass graft; Z82.49 Family history of ischemic heart disease and other diseases of the circulatory system; Z68.25 Body mass index [BMI] 25.0-25.9, adult

== ENCOUNTER 2018-03-31 03:40 | Inpatient (IN) | payer OTHER, MEDICARE ==
[~2018-03-31] VITALS: Ht 180.3 cm; Wt 82.1 kg
--- NOTE | ~2018-03-31 | EKG ---
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
--- NOTE | ~2018-03-31 | CON ---
[place], [place] REPORT OF CONSULTATION [id number] UNIT #: [id number] ROOM: 519 DOCTOR: GABBI HAYWOOD DPM BIRTHDATE: [birth year] DOS: 03/31/2018 PODIATRY CONSULTATION SUBJECTIVE: This 72-year-old man is seen as consulted for evaluation and treatment of wounds on the dorsal portions of his feet. States they have been there for a few weeks. He is diabetic, was admitted with blood sugars well over 500. He has history of coronary artery disease. He states the wounds are getting better. He is not sure how he got them, unaware of any trauma. PAST MEDICAL HISTORY: Positive for anemia, coronary artery disease, cardiomyopathy, cholelithiasis, chronic pain syndrome, chronic kidney disease stage 3, diverticulosis, hypertension, gastroesophageal reflux disease, hyperlipidemia, medical noncompliance, protein calorie malnutrition, normocytic anemia, thrombocytosis, tobacco abuse, type 2 diabetes, bilateral foot wounds. ALLERGIES: He has no known drug allergies. CURRENT MEDICATIONS: Include Lipitor, Apresoline, K-Dur, Protonix, Zaroxolyn, Imdur, Plavix, vitamin D, Coreg, Restoril, Humalog, Zofran, potassium, insulin. OBJECTIVE: Upon lower extremity physical examination, pedal pulses are decreased bilaterally. There is absent hair growth. Skin is thin and shiny. CFT is 2 seconds to all digits. Skin temperature is slightly cool to toes. Sensation is diminished in the forefoot bilaterally. No signs of muscle atrophy. Dorsal portion of the forefoot bilaterally has wounds present with some nonfibrous slough and necrotic tissue noted, minimal erythema less than a centimeter surrounding the wounds. There is no localized edema, no fluctuance or signs of abscess. There is some necrotic tissue present, the digits are not involved, it is proximal digits in the dorsal forefoot bilaterally. LABORATORY DATA: White blood cell count was normal. ASSESSMENT: Diabetes with probable peripheral arterial disease, diabetic foot ulcer, dorsal forefoot bilaterally without infection. PLAN: Consult is performed. We will order x-rays bilaterally as well as arterial vascular studies both lower extremities. I suspect he has a degree of PAD. Wound care orders to both feet. The dorsal forefoot with Betadine and dry dressing until we get his arterial studies back, keep pressure off the areas. We will continue to follow while in the hospital. Thank you for the opportunity to take part in care of this patient. [place], [place] REPORT OF CONSULTATION NAME: SUNNY MANCIA [place] UNIT #: [id number] ROOM: [facility] DOCTOR: GABBI HAYWOOD DPM BIRTHDATE: [birth year] GABBI HAYWOOD DPM CM:CONSTR:REPORT OF CONSULTATION 1213 03/31/18 1457 interface
[~2018-03-31 03:40] MED LIST changes: +APRESOLINE10 MG PO; +DOXYCYCLINE100 M3 PO; +FUROSEMIDE40 MG PO; +Humalog SQ; +K-TAB10 MEQ PO; +METOLAZONE2.5 MG PO; +PERCOCET 10-321 EACH PO; +TEMAZEPAM30 MG PO; +VITAMIN D32000 UNI1 PO
[2018-03-31 03:45] VITALS: BP 110/63
[2018-03-31 04:31] LABS: ALKALINE PHOSPHATASE 93 U/L (45-117); BUN 51 mg/dl (7-24); CHLORIDE 88 mmol/L (98-107); CREATININE 2.52 mg/dL (0.70-1.30); POTASSIUM 3.2 mmol/L (3.5-5.1); SGOT/AST 18 IU/L (3-35); SGPT/ALT 20 U/L (12-78); SODIUM 129 mmol/L (136-145); TOTAL PROTEIN 7.6 gm/dL (6.4-8.2)
[2018-03-31 04:32] LABS: TROPONIN I < 0.015 ng/ml (<0.045)
[2018-03-31 04:33] LABS: BILIRUBIN NEGATIVE (NEGATIVE); BLOOD NEGATIVE (NEGATIVE); CLARITY CLEAR (CLEAR); COLOR YELLOW (YELLOW); GLUCOSE 3+ (NEGATIVE); KETONE NEGATIVE (NEGATIVE); LEUKO ESTERASE NEGATIVE (NEGATIVE); NITRITE NEGATIVE (NEGATIVE); UROBILINOGEN 0.2 E.U./dl (0.2-1.0)
[2018-03-31 04:37] LABS: BACTERIA 2+; MUCOUS TRACE; RBC 0-2 rbc/hpf (0-2)
[2018-03-31 05:22] LABS: BASO # 0.1 10*3/uL (0.0-0.1); BASO % 0.7 % (0.0-1.0); EOS # 0.1 10*3/uL (0.0-0.4); EOS % 1.5 % (1.0-4.0); HEMATOCRIT 35.9 % (42.0-52.0); HEMOGLOBIN 12.1 g/dl (14.0-18.0); LYMPH # 1.6 10*3/uL (1.3-4.4); MEAN CELL VOLUME 86.3 fl (80.0-94.0); MEAN CORPUSCULAR HGB 29.1 pg (27.0-31.0); MEAN CORPUSCULAR HGB CONC 33.7 g/dl (33.0-37.0); MEAN PLATELET VOLUME 9.7 fl (9.6-12.3); MONO # 0.9 10*3/uL (0.1-1.0); MONO % 8.9 % (3.0-9.0); NEUT # 6.8 10*3/uL (2.3-7.9); NEUT % 71.5 % (47.0-73.0); PLATELET COUNT AUTOMATED 366 10*3/uL (130-400); RED BLOOD COUNT 4.16 10*6/uL (4.50-5.90); RED CELL DISTRI WIDTH 13.3 % (0-14.5); WHITE BLOOD COUNT 9.6 10*3/uL (4.8-10.8)
[2018-03-31 05:38] VITALS: BP 110/60
[2018-03-31 06:50] VITALS: BP 102/80
[2018-03-31 08:00] VITALS: BP 102/39
[2018-03-31 10:53] LABS: BASO # 0.1 10*3/uL (0.0-0.1); BASO % 0.6 % (0.0-1.0); EOS # 0.2 10*3/uL (0.0-0.4); EOS % 1.4 % (1.0-4.0); HEMOGLOBIN 11.8 g/dl (14.0-18.0); LYMPH # 1.3 10*3/uL (1.3-4.4); LYMPH % 11.9 % (27.0-41.0); MEAN CELL VOLUME 85.6 fl (80.0-94.0); MEAN CORPUSCULAR HGB 28.9 pg (27.0-31.0); MEAN CORPUSCULAR HGB CONC 33.7 g/dl (33.0-37.0); MEAN PLATELET VOLUME 9.3 fl (9.6-12.3); MONO # 0.9 10*3/uL (0.1-1.0); MONO % 8.2 % (3.0-9.0); NEUT # 8.1 10*3/uL (2.3-7.9); NEUT % 77.5 % (47.0-73.0); PLATELET COUNT AUTOMATED 358 10*3/uL (130-400); RED BLOOD COUNT 4.09 10*6/uL (4.50-5.90); RED CELL DISTRI WIDTH 13.2 % (0-14.5); WHITE BLOOD COUNT 10.5 10*3/uL (4.8-10.8)
[2018-03-31 11:05] LABS: CREATININE 1.99 mg/dL (0.70-1.30); POTASSIUM 2.8 mmol/L (3.5-5.1)
[2018-03-31 11:07] LABS: ACT PARTIAL THROMBO TIME 22.4 SECONDS (20.8-31.5); INTERNATIONAL NORM RATIO 1.1 (2.0-3.5)
[2018-03-31 12:00] VITALS: BP 128/54
[2018-03-31] MEDS ORDERED: ACCU-CHEK FAST1 EACH MC (14:26)
[2018-03-31] MEDS ORDERED: TEST STRIPS1 EACH MC (14:26)
== END 2018-03-31 14:56 | disposition home or self-care (01) | DRG 637 ==
LOC: ED 03:40 → EDHOLD 05:00 → 5E 05:00
PROVIDERS: Internal Medicine; Student in an Organized Health Care Education/Training Program
DX: E11.00 Type 2 diabetes mellitus with hyperosmolarity without nonketotic hyperglycemic-hyperosmolar coma (NKHHC) (principal); N17.0 Acute kidney failure with tubular necrosis; E87.1 Hypo-osmolality and hyponatremia; E44.1 Mild protein-calorie malnutrition; I50.42 Chronic combined systolic (congestive) and diastolic (congestive) heart failure; I42.9 Cardiomyopathy, unspecified; E11.65 Type 2 diabetes mellitus with hyperglycemia; E87.6 Hypokalemia; E87.8 Other disorders of electrolyte and fluid balance, not elsewhere classified; E78.49 Other hyperlipidemia; D64.9 Anemia, unspecified; I25.118 Atherosclerotic heart disease of native coronary artery with other forms of angina pectoris; F51.01 Primary insomnia; E11.621 Type 2 diabetes mellitus with foot ulcer; N18.3 Chronic kidney disease, stage 3 (moderate); X58.XXXA Exposure to other specified factors, initial encounter; S91.309A Unspecified open wound, unspecified foot, initial encounter; G89.4 Chronic pain syndrome; K21.9 Gastro-esophageal reflux disease without esophagitis; E78.5 Hyperlipidemia, unspecified; E11.22 Type 2 diabetes mellitus with diabetic chronic kidney disease; I12.9 Hypertensive chronic kidney disease with stage 1 through stage 4 chronic kidney disease, or unspecified chronic kidney disease; K57.90 Diverticulosis of intestine, part unspecified, without perforation or abscess without bleeding; Z79.899 Other long term (current) drug therapy; Z79.82 Long term (current) use of aspirin; I25.2 Old myocardial infarction; Z86.14 Personal history of Methicillin resistant Staphylococcus aureus infection; Z95.5 Presence of coronary angioplasty implant and graft; Z95.1 Presence of aortocoronary bypass graft; Z83.3 Family history of diabetes mellitus; Z82.49 Family history of ischemic heart disease and other diseases of the circulatory system; Z79.4 Long term (current) use of insulin; Y93.89 Activity, other specified; Y92.89 Other specified places as the place of occurrence of the external cause; Y99.8 Other external cause status

== ENCOUNTER 2018-04-03 09:05 | Emergency (ER) | payer OTHER ==
[~2018-04-03] VITALS: Ht 180.3 cm; Wt 83.5 kg
--- NOTE | ~2018-04-03 | EKG ---
[place], [place] ELECTROCARDIOGRAM REPORT NAME: SUNNY MANCIA UNIT #: [id number] ROOM: DOCTOR: EPIPHANY DRAFT REPORT BIRTHDATE: [birth year] [facility] Test Date: 2018-04-03 Test Time: 09:38:15 Pat Name: SUNNY MANCIA Department: Room: Gender: Gmat Tutor: Sandie Carrillo : 1945 Requested By: KEN RUSH Order Number: [id number] Reading MD: Milvia Barnard MD Measurements Intervals [place] Rate: 81 P: 19 [place]: 168 QRS: 8 QRSD: 177 T: 187 QT: 455 QTc: 529 Interpretive Statements Sinus rhythm Ventricular premature complex Left bundle branch block Compared to ECG 03/31/2018 04:02:01 Ventricular premature complex(es) now present Atrial abnormality no longer present Electronically Signed On 04-07-2018 10:43:28 PST by Milvia Barnard MD CM:EKGRPT:ELECTROCARDIOGRAM REPORT 0938 1043 KEN RUSH EPIPHANY DRAFT REPORT KEN RUSH
[~2018-04-03 09:05] MED LIST changes: +ACCU-CHEK FAST1 EACH MC; +TEST STRIPS1 EACH MC
[2018-04-03 09:25] LABS: BASO # 0.1 10*3/uL (0.0-0.1); BASO % 0.4 % (0.0-1.0); EOS # 0.1 10*3/uL (0.0-0.4); EOS % 0.5 % (1.0-4.0); HEMOGLOBIN 13.7 g/dl (14.0-18.0); LYMPH # 1.5 10*3/uL (1.3-4.4); LYMPH % 9.3 % (27.0-41.0); MEAN CORPUSCULAR HGB 28.7 pg (27.0-31.0); MEAN CORPUSCULAR HGB CONC 33.4 g/dl (33.0-37.0); MEAN PLATELET VOLUME 9.5 fl (9.6-12.3); MONO % 6.3 % (3.0-9.0); NEUT # 13.2 10*3/uL (2.3-7.9); NEUT % 83.1 % (47.0-73.0); PLATELET COUNT AUTOMATED 429 10*3/uL (130-400); RED BLOOD COUNT 4.77 10*6/uL (4.50-5.90); RED CELL DISTRI WIDTH 13.2 % (0-14.5); WHITE BLOOD COUNT 15.9 10*3/uL (4.8-10.8)
[2018-04-03 09:43] LABS: ALBUMIN 3.3 gm/dl (3.1-4.5); ALKALINE PHOSPHATASE 107 U/L (45-117); BUN 48 mg/dl (7-24); CHLORIDE 89 mmol/L (98-107); CREATININE 2.84 mg/dL (0.70-1.30); LIPASE 99 U/L (73-393); POTASSIUM 3.1 mmol/L (3.5-5.1); SGOT/AST 17 IU/L (3-35); SGPT/ALT 21 U/L (12-78); SODIUM 132 mmol/L (136-145); TOTAL PROTEIN 8.8 gm/dL (6.4-8.2)
[2018-04-03 09:44] LABS: TROPONIN I < 0.015 ng/ml (<0.045)
== END 2018-04-03 12:49 | disposition other institution (70) ==
LOC: ED 09:05
PROVIDERS: Nurse Practitioner Family
DX: R53.1 Weakness (principal); E11.65 Type 2 diabetes mellitus with hyperglycemia; K59.00 Constipation, unspecified; F17.200 Nicotine dependence, unspecified, uncomplicated; Z79.4 Long term (current) use of insulin; Z79.2 Long term (current) use of antibiotics; Z79.899 Other long term (current) drug therapy; Z79.82 Long term (current) use of aspirin

== ENCOUNTER 2018-04-08 23:50 | Inpatient (IN) | payer OTHER, MEDICARE ==
[~2018-04-08] VITALS: Ht 180.3 cm; Wt 79.8 kg
--- NOTE | ~2018-04-08 | PR ---
[place], [place] PROGRESS NOTE NAME: SUNNY MANCIA [facility] #: [id number] UNIT #: [id number] ROOM: 525 DOCTOR: SABA RICHARD MD BIRTHDATE: [birth year] DOS: SUBJECTIVE: The patient has been admitted to the hospital with severe peripheral vascular disease with wound on both the feet with pain in both the feet with difficulty in walking. He will be transferred to under care of vascular surgeon to do vascularization of the lower limbs because he has had severe peripheral vascular disease. He is also having uncontrolled insulin-dependent diabetes mellitus, general weakness, wounds of the feet, hyperkalemia, history of angioplasty, history of ST elevation myocardial infarction, status post aortocoronary bypass, hyperlipidemia, type 2 diabetes mellitus, cardiomyopathy, combined congestive and diastolic congestive heart failure, hypertension, GERD syndrome, medical noncompliance, acute kidney disease on chronic kidney disease, hypertension. His blood culture is negative. Ultrasound of the kidney shows no hydronephrosis bilaterally, stable left simple no change from before, no acute change. Ultrasound of the lower limbs shows evidence of severe peripheral vascular disease, evidence suggestive of stenosis in the mid and distal superficial femoral artery with severe disability and occlusion of the posterior tibial artery and decreased flow velocity suggesting decreased cardiac output in the interval. On the left side, severe disease from the popliteal artery distally with occlusion of the posterior tibial artery decrease in the flow velocity suggesting decreased cardiac output in the interval. The disease appeared to have progressed in the short time frame. We recommended vascular consultation, which has already been done and the patient is being transferred to the vascular surgeon to . LABORATORY DATA: His basic metabolic profile showed glucose 193, BUN 51, creatinine 1.78, GFR 38, potassium 2.4, chloride 95, calcium 8.3. CBC showed white count 8300, hemoglobin 11.3, hematocrit 34.1. Sed rate is 100. C-reactive protein 11.1. PLAN: The patient is being transferred under the care of vascular surgeon. [place], [place] PROGRESS NOTE NAME: SUNNY MANCIA [facility] #: [id number] UNIT #: [id number] ROOM: 525 DOCTOR: SABA RICHARD MD BIRTHDATE: [birth year] SABA RICHARD MD CM:SHU 1305 1439 SABA RICHARD MD 05/22/18 0948 interface
--- NOTE | ~2018-04-08 | PR ---
[place], [place] PROGRESS NOTE NAME: SUNNY MANCIA [facility] #: [id number] UNIT #: [id number] ROOM: 525 DOCTOR: GABBI HAYWOOD DPM BIRTHDATE: [birth year] DOS: 04/10/2018 SUBJECTIVE: This patient is seen for followup of chronic ulcerations, dorsal portion of both feet in the forefoot. He states he does have some pain, but overall not too bad. OBJECTIVE: Pedal pulses are significantly diminished, absent hair growth noted, rubor upon dependency and pallor upon elevation. Dorsal forefoot of both feet has ulcerations present with some nonviable and mildly necrotic tissue. Well demarcated borders are noted. There is some erythema surrounding the wound, less than 2 cm. No fluctuance or purulent drainage. No signs of abscess clinically. MRI is pending. His arterial studies showed severe peripheral vascular disease, severe disease from the popliteal artery distally to occlusion of the posterior tibial artery on the left. Decreased flow velocities on the right significant and severe peripheral vascular disease as well. ASSESSMENT: Severe peripheral arterial disease, diabetic ulcerations, bilateral feet. Mild cellulitis. MRI pending. PLAN: Evaluation and management. I discussed with the patient the results of his arterial vascular studies. I stressed to him that it is important that he sees somebody as soon as possible to address his PAD, as this puts him at risk for limb loss, sepsis and possible . The patient refuses to be transferred, refuses to see anybody at this time. He states, "I am okay." He wishes to continue conservative management. I again cautioned him that this puts him at risk and discussed with him the severe complications that could occur. He will think about this and I told him to seriously consider transfer to a facility where he could have vascular intervention sooner than later. Continue with conservative care at this point. See what the MRI shows. Follow with the patient while in the hospital. GABBI HAYWOOD DPM CM:PNTRANS 1218 37 GABBI HAYWOOD DPM 04/10/18 173 interface
--- NOTE | ~2018-04-08 | EKG ---
[place], [place] ELECTROCARDIOGRAM REPORT NAME: SUNNY MANCIA UNIT #: [id number] ROOM: DOCTOR: EPIPHANY DRAFT REPORT BIRTHDATE: [birth year] [facility] Test Date: 2018-04-09 Test Time: 02:48:27 Pat Name: SUNNY MANCIA Department: Room: Gender: Shank Taper: : 1945 Requested By: NEERAJ LEMONS DNP Order Number: [id number] Reading MD: Measurements Intervals [place] Rate: 76 P: 48 WI: 189 QRS: 7 QRSD: 188 T: 176 QT: 485 QTc: 546 Interpretive Statements Sinus rhythm Left atrial enlargement Left bundle branch block Compared to ECG 04/03/2018 09:38:15 Atrial abnormality now present Ventricular premature complex(es) no longer present CM:EKGRPT:ELECTROCARDIOGRAM REPORT 0248 6012 [facility] NEERAJ LEMONS DNP
[2018-04-09 00:41] VITALS: BP 122/68
[2018-04-09 01:39] LABS: BASO % 0.4 % (0.0-1.0); EOS # 0.1 10*3/uL (0.0-0.4); EOS % 0.6 % (1.0-4.0); HEMATOCRIT 35.5 % (42.0-52.0); HEMOGLOBIN 12.1 g/dl (14.0-18.0); LYMPH # 1.3 10*3/uL (1.3-4.4); LYMPH % 12.1 % (27.0-41.0); MEAN CELL VOLUME 85.1 fl (80.0-94.0); MEAN CORPUSCULAR HGB CONC 34.1 g/dl (33.0-37.0); MEAN PLATELET VOLUME 9.5 fl (9.6-12.3); MONO # 0.8 10*3/uL (0.1-1.0); MONO % 7.6 % (3.0-9.0); NEUT # 8.6 10*3/uL (2.3-7.9); NEUT % 78.9 % (47.0-73.0); PLATELET COUNT AUTOMATED 466 10*3/uL (130-400); RED BLOOD COUNT 4.17 10*6/uL (4.50-5.90); RED CELL DISTRI WIDTH 13.4 % (0-14.5); WHITE BLOOD COUNT 10.9 10*3/uL (4.8-10.8)
[2018-04-09 01:54] LABS: ALBUMIN 2.8 gm/dl (3.1-4.5); CREATININE 2.53 mg/dL (0.70-1.30); POTASSIUM 2.7 mmol/L (3.5-5.1); TOTAL PROTEIN 8.2 gm/dL (6.4-8.2)
[2018-04-09 04:05] VITALS: BP 125/71
--- NOTE | 2018-04-09 04:05 | NUR ---
A 73, admitted to , under the services of FIDEL Santizo MD with a diagnosis of WOUND OF FOOT, CHRONIC KIDNEY DISEASE, HYPOKALEMIA. Chief complaint is FOOT WOUND, WITH PAIN. Patient arrived via ambulance from ER. Monitor applied. Initial assessment completed. Vital signs taken and recorded. FIDEL SANTIZO MD notified of admission to the unit. Orders received. See assessment for past medical history, medications and allergies. Patient and/or family oriented to unit. [facility] visitation policy reviewed. Clothing/patient valuable form completed. PEÑA BRENNAN
[2018-04-09 08:00] VITALS: BP 128/68
[2018-04-09 12:00] VITALS: BP 113/56
--- NOTE | 2018-04-09 13:36 | NUR ---
DR MAI'S CELL PHONE CALLED. LEFT MESSAGE, WILL AWAIT RETURN CALL.
--- NOTE | 2018-04-09 14:12 | NUR ---
DR SHANE'S SERVICE CALLED DR YEH NOTIFIED OF CONSULT INFO.
--- NOTE | 2018-04-09 14:16 | NUR ---
DR SIFUENTES'S ANSWERING SERVICE NOTIFIED OF CONSULT. INFO GIVEN. 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
--- NOTE | 2018-04-09 15:11 | NUR ---
DR MAI CALLED AND CONSULT INFO GIVEN. SHE STATES SHE WILL SEE HIM TOMORROW.
[2018-04-09 16:00] VITALS: BP 128/68
[2018-04-09 20:00] VITALS: BP 124/55
--- NOTE | 2018-04-09 22:33 | NUR ---
SUNNY MANCIA [id number] Please refer to the physician's history and physical for past medical history, comorbid conditions, and allergies. Diagnosis: WOUND OF FOOT, CHRONIC KIDNEY DISEASE, HYPOKALEMIA Miguel Score: 15,AT RISK WOUND DESCRIPTIONS: Location of the wound: DORSAL LEFT FOOT Thickness: Full Size: 2.3cm X 4.3cm X 0.1cm Tunneling: NONE Undermining: NONE Sinus Tract: NONE Presence of Exudate: NONE Amount: None Color: Yellow, RED, BROWN Odor: None Periwound Skin Appearance: Erythema Wound edges: APPROXIMATED Pain (associated with wound): DENIED AT TIME OF ASSESSMENT How does patient state this happened? PATIENT UNSURE HOW THIS AREA HAPPENED If wound is on legs/feet or hands, capillary refill time, pulses, color temp, sensation: CAP REFILL < 3SECONDS. Location of the wound: DORSAL RIGHT FOOT Thickness: Full Size: 1.6cm X 3.5cm X 0.1cm Tunneling: NONE Undermining: NONE Sinus Tract: NONE Presence of Exudate: NONE Amount: None Color: Yellow, RED, BROWN Odor: None Periwound Skin Appearance: Erythema Wound edges: APPROXIMATED Pain (associated with wound): DENIED AT TIME OF ASSESSMENT How does patient state this happened? PATIENT UNSURE HOW THIS HAPPENED. If wound is on legs/feet or hands, capillary refill time, pulses, color temp, sensation: CAP REFILL < 3 SECONDS. Location of the wound: LEFT MEDIAL ASPECT OF HEEL Type of wound: UNSTAGEABLE Size: 1.1cm X 1.3cm X <0.1cm Tunneling: NONE Undermining: NONE Sinus Tract: NONE Presence of Exudate:NONE Amount: None Color: Brown Odor: None Periwound Skin Appearance: Normal Wound edges: CLOSED Pain (associated with wound): DENIED AT TIME OF ASSESSMENT How does patient state this happened? PATIENT UNSURE HOW THIS HAPPENED. If wound is on legs/feet or hands, capillary refill time, pulses, color temp, sensation: CAP REFILL < 3 SECONDS. Location of the wound: BACK OF LEFT HEEL Type of wound: UNSTAGEABLE Size: 2.5cm X 0.4cm X <0.1cm Tunneling: NONE Undermining: NONE Sinus Tract: NONE Presence of Exudate:NONE Amount: None Color: Brown Odor: None Periwound Skin Appearance: Normal Wound edges: CLOSED Pain (associated with wound): DENIED AT TIME OF ASSESSMENT How does patient state this happened? PATIENT UNSURE HOW THIS HAPPENED. If wound is on legs/feet or hands, capillary refill time, pulses, color temp, sensation: CAP REFILL < 3 SECONDS. Location of the wound: BACK OF LEFT HEEL Type of wound: UNSTAGEABLE Size: 2.5cm X 0.4cm X <0.1cm Tunneling: NONE Undermining: NONE Sinus Tract: NONE Presence of Exudate:NONE Amount: None Color: Brown Odor: None Periwound Skin Appearance: Normal Wound edges: CLOSED Pain (associated with wound): DENIED AT TIME OF ASSESSMENT How does patient state this happened? PATIENT UNSURE HOW THIS HAPPENED. If wound is on legs/feet or hands, capillary refill time, pulses, color temp, sensation: CAP REFILL < 3 SECONDS. Location of the wound: LATERAL BACK OF LEFT HEEL Type of wound: UNSTAGEABLE Size: 0.8cm X 0.4cm X <0.1cm Tunneling: NONE Undermining: NONE Sinus Tract: NONE Presence of Exudate:NONE Amount: None Color: Brown Odor: None Periwound Skin Appearance: Normal Wound edges: CLOSED Pain (associated with wound): DENIED AT TIME OF ASSESSMENT How does patient state this happened? PATIENT UNSURE HOW THIS HAPPENED. If wound is on legs/feet or hands, capillary refill time, pulses, color temp, sensation: CAP REFILL < 3 SECONDS. Location of the wound: LATERAL LEFT HEEL Type of wound: UNSTAGEABLE Size: 0.9cm X 0.2cm X <0.1cm Tunneling: NONE Undermining: NONE Sinus Tract: NONE Presence of Exudate:NONE Amount: None Color: Brown Odor: None Periwound Skin Appearance: Normal Wound edges: CLOSED Pain (associated with wound): DENIED AT TIME OF ASSESSMENT How does patient state this happened? PATIENT UNSURE HOW THIS HAPPENED. If wound is on legs/feet or hands, capillary refill time, pulses, color temp, sensation: CAP REFILL < 3 SECONDS. Surface the patient is resting on: Isoflex SKIN PREVENTION RECOMMENDATION: 1. Pressure redistribution support surface as appropriate 2. Elevate heels 3. Remove boots/TEDS every shift and reapply 4. Head of bed 30 degrees as tolerated 5. Assess nutrition and hydration 6. Manage moisture 7. Avoid the use of containment devices while in bed 8. Use absorptive products on surfaces limit layers of linens on bed 9. Turn and reposition every 1-2 hours in bed and every 1 hour in chair as tolerated 10. Weight shifts every 15 minutes while up in chair 11. Offloading with pillows or device to keep heels elevated off bed 12. Monitor skin at least every shift 13. Inspect under medical devices twice a day WOUND TREATMENT RECOMMENDATIONS: FULL THICKNESS GUIDELINES TO RIGHT AND LEFT FEET: CLEANSE WITH NSS APPLY SUREPREP AROUND WOUND ALLOW TO DRY. APPLY THERAHONEY AND COVER WITH OPTIFOAM GENTLE.
--- NOTE | 2018-04-09 23:40 | NUR ---
wound care recommendations were give to Lisa liriano in the morning.
[2018-04-10] VITALS: BP 103/73
--- NOTE | 2018-04-10 01:15 | NUR ---
PERCOCET GIVEN FOR C/O 10/10 ALL OVER PAIN. BED IN LOWEST, LOCKED POSITION AND CALL LIGHT IN REACH. WILL MONITOR.
[2018-04-10 06:39] LABS: BASO # 0.1 10*3/uL (0.0-0.1); BASO % 0.7 % (0.0-1.0); EOS # 0.2 10*3/uL (0.0-0.4); HEMATOCRIT 34.1 % (42.0-52.0); HEMOGLOBIN 11.3 g/dl (14.0-18.0); LYMPH # 1.8 10*3/uL (1.3-4.4); LYMPH % 21.9 % (27.0-41.0); MEAN CELL VOLUME 87.2 fl (80.0-94.0); MEAN CORPUSCULAR HGB 28.9 pg (27.0-31.0); MEAN CORPUSCULAR HGB CONC 33.1 g/dl (33.0-37.0); MEAN PLATELET VOLUME 9.2 fl (9.6-12.3); MONO # 0.9 10*3/uL (0.1-1.0); MONO % 10.2 % (3.0-9.0); NEUT # 5.4 10*3/uL (2.3-7.9); NEUT % 64.7 % (47.0-73.0); PLATELET COUNT AUTOMATED 370 10*3/uL (130-400); RED BLOOD COUNT 3.91 10*6/uL (4.50-5.90); RED CELL DISTRI WIDTH 13.5 % (0-14.5); WHITE BLOOD COUNT 8.3 10*3/uL (4.8-10.8)
[2018-04-10 07:01] LABS: CREATININE 1.78 mg/dL (0.70-1.30)
[2018-04-10 07:03] LABS: POTASSIUM 2.4 mmol/L (3.5-5.1)
--- NOTE | 2018-04-10 07:32 | NUR ---
DR CARDONA CALLED WITH CRITICAL POTASSIUM. NEW ORDERS REC'D. ALSO NOTIFIED OF WOUND CARE RECOMMENDATIONS AND STATES OK TO PUT IN ORDERS.
--- NOTE | 2018-04-10 10:36 | NUR ---
PATIENT MEDICATED WITH PERCOCET PER DRS ORDERS FOR COMPLAINTS OF PAIN TO KNEE AT THIS TIME. RN WILL CONTINUE TO MONITOR
--- NOTE | 2018-04-10 11:33 | NUR ---
RESIDENT FOR DR CARDONA CALLED REGARDING CRITICAL RESULTS FROM PATIENTS ARTERIAL ULTRASOUND OF THE LOWER EXTREMITIES. STATES TO CALL PODIATRY REGARDING THESE RESULTS
--- NOTE | 2018-04-10 11:36 | NUR ---
CALL TO PODIATRY WAS ATTEMPTED AT THIS TIME. NO ANSWER. WILL CALL AGAIN.
[2018-04-10 12:00] VITALS: BP 104/53
--- NOTE | 2018-04-10 14:00 | NUR ---
Dump Truck Driver Off [address] in to see patient. He requests CM speak to his who should be here at the hospital in about an hour. He states there is no point in asking him questions because he doesn't know anything. He does know he was at [facility] prior to coming to the hospital. Will follow up at a later time.
--- NOTE | 2018-04-10 14:19 | NUR ---
DR CARDONA RESIDENT ON THE FLOOR, MADE AWARE THAT PATIENT IS REFUSING ANYMORE POTASSIUM AT THIS TIME
--- NOTE | 2018-04-10 14:55 | NUR ---
PATIENT MEDICATED FOR PAIN. SEE EMAR.
[2018-04-10 16:00] VITALS: BP 122/62
--- NOTE | 2018-04-10 16:55 | NUR ---
ATTEMPTED TO CALL PODIATRY RESIDENT REGARDING PATIENTS DECISION TO ACCEPT TRANSFER TO [facility] BUT NO ANSWER WHEN CALLED. RN WILL CONTINUE TO ATTEMPT TO REACH RESIDENT
--- NOTE | 2018-04-10 18:20 | NUR ---
PATIENT MEDICATED WITH 1 TIME DOSE OF DILUADID AT THIS TIME PER DRS ORDERS. RN WILL CONTINUE TO MONITOR
--- NOTE | 2018-04-10 18:55 | NUR ---
NEW IV INFUSION STARTED AT THIS TIME PER DR FOLEY ORDERS. RN WILL CONTINUE TO MONITOR
[2018-04-11] VITALS: BP 110/64
[2018-04-11 05:31] VITALS: BP 130/78
[2018-04-11 08:01] VITALS: BP 122/66
--- NOTE | 2018-04-11 09:13 | NUR ---
Percocet given per patient request for c/o pain "everywhere." Will monitor.
--- NOTE | 2018-04-11 09:52 | NUR ---
Spoke with Dr. Jarvis regarding patients transfer. She recommended I speak with Dr. Sotelo. When I spoke with Dr. Sotelo he said it is ok for patient to go. I gave him the physician number for [facility] and let him know that the patient has to be accepted and have a bed available before we can discharge/transfer patient.
--- NOTE | 2018-04-11 10:25 | NUR ---
Rosalba, the Nursing Processing Supervisor from [place] called for information on the type of room needed.
--- NOTE | 2018-04-11 10:43 | NUR ---
Rosalba from [place] called with number to call report and accepting physicians name.
[2018-04-11 12:00] VITALS: BP 118/72
--- NOTE | 2018-04-11 12:10 | NUR ---
Spoke with Dr. Sotelo for patient c/o pain. See new orders.
--- NOTE | 2018-04-11 12:16 | NUR ---
Have been in touch with Ana, patients multiple times through out the morning to keep her updated on the transfer process. Let her know that the ambulance will be here about 1:30-2:00. She is going to come and sit with patient now instead of meeting him at [facility].
--- NOTE | 2018-04-11 12:29 | NUR ---
PT C/O PAIN RATED 10/10 ALL OVER. STATES PAIN IS EVERY WHERE. IV DILAUDID GIVEN AT THIS TIME PER ORDER.
--- NOTE | 2018-04-11 12:45 | NUR ---
Patient refused all care to wounds. He stated "everyone else has looked at them, you dont have to."
--- NOTE | 2018-04-11 13:05 | NUR ---
Attempted to call nurse to nurse report but nurse at [facility] was busy and will call back.
--- NOTE | 2018-04-11 13:26 | NUR ---
Nurse to nurse given to Stacey from [place].
--- NOTE | 2018-04-11 13:40 | NUR ---
Discharge instructions reviewed with patient/family. Patient receptive and verbalizes understanding. Follow-up care arranged. Written instructions given to patient/family. Patient was wheeled from unit in the care of EMT's. His and daughter have patients belongings. GEORGIA ELISE
== END 2018-04-11 13:41 | disposition short-term general hospital (02) | DRG 637 ==
LOC: ED 23:50 → EDHOLD 04-09 02:53 → 5E 04-09 02:53
PROVIDERS: Nurse Practitioner Family; ADMIT Internal Medicine
DX: E11.621 Type 2 diabetes mellitus with foot ulcer (principal); I21.3 ST elevation (STEMI) myocardial infarction of unspecified site; I50.40 Unspecified combined systolic (congestive) and diastolic (congestive) heart failure; E87.1 Hypo-osmolality and hyponatremia; I42.9 Cardiomyopathy, unspecified; L97.829 Non-pressure chronic ulcer of other part of left lower leg with unspecified severity; L97.819 Non-pressure chronic ulcer of other part of right lower leg with unspecified severity; L03.116 Cellulitis of left lower limb; L03.115 Cellulitis of right lower limb; N17.0 Acute kidney failure with tubular necrosis; Z91.14 Patient's other noncompliance with medication regimen; A49.02 Methicillin resistant Staphylococcus aureus infection, unspecified site; E11.22 Type 2 diabetes mellitus with diabetic chronic kidney disease; E78.5 Hyperlipidemia, unspecified; E87.6 Hypokalemia; G89.4 Chronic pain syndrome; N18.3 Chronic kidney disease, stage 3 (moderate); K57.90 Diverticulosis of intestine, part unspecified, without perforation or abscess without bleeding; I25.10 Atherosclerotic heart disease of native coronary artery without angina pectoris; K21.9 Gastro-esophageal reflux disease without esophagitis; I25.2 Old myocardial infarction; Z79.82 Long term (current) use of aspirin; Z98.62 Peripheral vascular angioplasty status; Z82.49 Family history of ischemic heart disease and other diseases of the circulatory system; Z84.1 Family history of disorders of kidney and ureter; Z83.3 Family history of diabetes mellitus; Z91.19 Patient's noncompliance with other medical treatment and regimen; Z95.5 Presence of coronary angioplasty implant and graft; Z95.1 Presence of aortocoronary bypass graft; E87.8 Other disorders of electrolyte and fluid balance, not elsewhere classified

== ENCOUNTER 2018-05-11 13:38 | Inpatient (IN) | payer OTHER ==
[~2018-05-11] VITALS: Ht 180.3 cm; Wt 83.3 kg
--- NOTE | ~2018-05-11 | PR ---
[place], [place] PROGRESS NOTE NAME: SUNNY MANCIA [facility] #: [id number] UNIT #: [id number] ROOM: 419 DOCTOR: ACOSTA GERONIMOSHIKHA Pérez BIRTHDATE: [birth year] DOS: 05/13/2018 SUBJECTIVE: The patient was seen for followup of gangrene of the second right toe and ulceration dorsal left foot. OBJECTIVE FINDINGS: Vascular: Nonpalpable pulses bilateral, decreased skin temperature. Decreased capillary fill time. Absent hair pulse. Decreased epicritic sensations. Dorsal left foot wound 3 cm in diameter, fibrotic tissue localized erythema. No signs of fluctuance or deep abscess. Second right toe was necrotic and gangrenous with surrounding erythema and mild malodor. Results of CTA not obtained yet as the test was waiting to be performed later today. ASSESSMENT: Severe peripheral vascular disease, gangrene of the second right toe ulceration dorsal left foot. PLAN: Evaluation and management. The patient will definitely need amputation of the second right toe, possibly a TMA or BKA amputation. The patient may have vascular intervention performed by Dr. Young awaiting on CTA results. Ordered Betadine-soaked Adaptic and gauze dressings to the areas. The patient will need amputation of at least the second right toe, possibly a transmetatarsal amputation and/or a BK amputation depending on results of vascular studies and vascular intervention. We will check on the patient tomorrow and further evaluate the second right toe at that time. I spoke with Dr. Castro regarding the patient's case along with Dr. Young. The patient will have his CTA performed today and Dr. Young may transfer the patient to [place] for vascular intervention. I discussed with Dr. Young that at the very least the second right toe will need to be amputated due to the appearance today. Podiatry will perform the procedure if the patient is transferred to [place] after vascular intervention is performed. The patient may need a transmet amputation or BKA depending on vascular results and/or vascular intervention. If the patient is not going to be transferred; we will check the patient tomorrow and may perform the toe amputation with Dr. Castro on Tuesday. I have consulted Infectious Disease today, ordered a new CBC with diff along with a sed rate and C-reactive protein. Change the dressing to include Betadine-soaked Adaptic and gauze dressing twice a day to the second right toe and dorsal left foot and we will check the patient's results later today and round on him tomorrow with Dr. Arelis Schneider, the podiatry resident, which I had discussed the details of the case with also. The patient will be seen for continued care and followup. [place], [place] PROGRESS NOTE NAME: SUNNY MANCIA Santy UNIT #: [id number] ROOM: [facility] DOCTOR: SHIKHA SHANE DPM BIRTHDATE: [birth year] SHIKHA SHANE DPM CM:SHU [id number] SHIKHA SHANE DPM 05/13/18 1247 interface
--- NOTE | ~2018-05-11 | CON ---
[place], [place] REPORT OF CONSULTATION NAME: SUNNY MANCIA UNIT #: [id number] ROOM: 419 DOCTOR: COLLINS SCHNEIDER,XAVIER BIRTHDATE: [birth year] DOS: 05/13/2018 ADDENDUM This is the addendum to the consultation note done by the nurse practitioner, Judit Barnard, on 05/13/2018. I agree with the assessment and plan made by the nurse practitioner, Judit Barnard. I reviewed the labs and imaging. I made the necessary changes in the note, I also agree to the addendum done by her of the same date. Xavier Sands MD CM:CONSTR:REPORT OF CONSULTATION 194 05/18/18 1214 interface
--- NOTE | ~2018-05-11 | EKG ---
[place], [place] ELECTROCARDIOGRAM REPORT NAME: SUNNY MANCIA UNIT #: [id number] ROOM: 419 DOCTOR: ANA DRAFT REPORT BIRTHDATE: [birth year] [facility] Test Date: 2018-05-11 Test Time: 14:06:36 Pat Name: SUNNY MANCIA Department: Room: 419 Gender: M Dean Of Girls: Jerrica Omer : 1945 Requested By: ABDIEL CARDENAS PA-C Order Number: [id number] Reading MD: Jem Pereyra MD Measurements Intervals [place] Rate: 69 P: 57 ID: [id number] QRS: 5 QRSD: 178 T: 182 QT: 494 QTc: 530 Interpretive Statements Sinus rhythm Left atrial enlargement Left bundle branch block Baseline wander in lead(s) V4 Compared to ECG 04/09/2018 02:48:27 No significant changes Electronically Signed On 05-11-2018 18:07:41 PST by Jem Pereyra MD CM:EKGRPT:ELECTROCARDIOGRAM REPORT [id number] 1807 ABDIEL CARDENAS PA-C EPIPHANY DRAFT REPORT ABDIEL CARDENAS PA-C
--- NOTE | ~2018-05-11 | EKG ---
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
--- NOTE | ~2018-05-11 | CON ---
[place], [place] REPORT OF CONSULTATION [id number] UNIT #: [id number] ROOM: 419 DOCTOR: KB WHITMORE,JULY BIRTHDATE: [birth year] DOS: 05/13/2018 HISTORY OF PRESENT ILLNESS: The patient is a 73-year-old male who was admitted from home on 05/11 with worsening of his right foot. He has a wet gangrene of the right second toe, which extends to the distal foot surrounded by erythema. He has significant leukocytosis, WBCs 25.7 on admission. He is being followed by Dr. Castro and Dr. Torrez with ankle and foot. He had a CTA done today, which shows severe stenosis of the popliteal arteries and significant stenosis of the peroneal arteries and occluded tibial arteries bilaterally, reconstituted anterior tibial arteries distally and right posterior tibial artery that are severely stenosed. Reviewing the chart, Podiatry is in discussion with Dr. Young regarding vascular evaluation, had no cultures as of yet obtained from the foot. Currently on vancomycin and Zosyn. The patient is complaining of pain in the right foot. Temp max during hospitalization has been 99.0. ID is consulted for right foot infection. The patient currently has no IV access. Per discussion with his nurse, no one is available to put in a central line until later today. PAST MEDICAL HISTORY: As above as well as acute kidney injury with tubular necrosis, anemia, coronary artery disease, cardiomyopathy, cholelithiasis, chronic kidney disease, hypertension, fracture of left radial head, GERD, hyperlipidemia, MRSA infection, medical noncompliance, NSTEMI, diabetes, angioplasty, cardiac catheterization, CABG x 5. SOCIAL HISTORY: He is a reformed tobacco user, chewed approximately a can or pack per day. No alcohol or illicit drug use. History is obtained per discussion with his significant other in the room and the patient himself offers minimal history or review of systems. FAMILY MEDICAL HISTORY: Father at the age of 69 from CHF. Mother in her 80s with chronic kidney disease. ALLERGIES: No known drug allergies. Per his significant other, he was on no antibiotics prior to admission. LABORATORY DATA: WBCs 20.9, platelets 363, BUN 62, creatinine 2.18. C-reactive protein 15.6. Vancomycin trough is pending. UA is unremarkable. REVIEW OF SYSTEMS: Rather limit to the patient's only complains of right foot pain. Denies nausea, vomiting or diarrhea. No difficulty with urination. No rash or itch. Does have lower extremity edema. Further review of systems is unremarkable. No fevers or chills. PHYSICAL EXAMINATION: VITAL SIGNS: Temperature 98.7, pulse 98, respirations 18, BP 105/62. GENERAL: A 73-year-old male, in no acute distress, nontoxic in appearance. HEENT: Normocephalic. NECK: Supple. No thrush. [place], [place] REPORT OF CONSULTATION NAME: SUNNY MANCIA UNIT #: [id number] ROOM: 419 DOCTOR: KB WHITMOREJULY BIRTHDATE: [birth year] LUNGS: Clear to auscultation bilaterally. Respirations even and unlabored. HEART: Regular rhythm. No murmur appreciated. ABDOMEN: Soft, nondistended. EXTREMITIES: Right lower extremity +2 edema, right second toe has blackened with extension to the distal foot with surrounding erythema and increased warmth as well as tenderness. No palpable pedal pulse. Left foot is dressed. SKIN: Otherwise, warm, pale, dry, free of rashes. ASSESSMENT: Right foot wet gangrene with surrounding cellulitis, patient with significant peripheral vascular disease. PLAN: He needs to be transferred where he can be followed by vascular surgeon who can evaluate him. I would agree with Podiatry that he will need at least amputation of the second toe if not a transmetatarsal amputation or higher depending upon what can be done for his vascular status. Again, he needs to be evaluated by vascular surgeon for this. We will continue the vancomycin and Zosyn. Antibiotics could be stopped if the foot is amputated of course. Addendum I did discuss with the patient's nurse that there will be a provider, Dr. Perry in a few hours as to place a line for the patient so that we have access for IV antibiotics. YINA QUILES CNP Lin Sands MD CM:CONSTR:REPORT OF CONSULTATION 1603 06/12/18 0945 interface
[2018-05-11 13:38] VITALS: BP 115/49
[2018-05-11 14:20] LABS: HEMATOCRIT 32.8 % (42.0-52.0); HEMOGLOBIN 10.7 g/dl (14.0-18.0); MEAN CORPUSCULAR HGB 28.4 pg (27.0-31.0); MEAN CORPUSCULAR HGB CONC 32.6 g/dl (33.0-37.0); PLATELET COUNT AUTOMATED 412 10*3/uL (130-400); RED BLOOD COUNT 3.77 10*6/uL (4.50-5.90); RED CELL DISTRI WIDTH 14.5 % (0-14.5); WHITE BLOOD COUNT 25.7 10*3/uL (4.8-10.8)
[2018-05-11 14:30] LABS: INTERNATIONAL NORM RATIO 1.1 (2.0-3.5)
[2018-05-11 14:36] LABS: ALBUMIN 2.5 gm/dl (3.1-4.5); ALKALINE PHOSPHATASE 93 U/L (45-117); BUN 84 mg/dl (7-24); CHLORIDE 84 mmol/L (98-107); LIPASE 28 U/L (73-393); POTASSIUM 3.8 mmol/L (3.5-5.1); SGOT/AST 29 IU/L (3-35); SGPT/ALT 20 U/L (12-78); SODIUM 131 mmol/L (136-145); TOTAL PROTEIN 8.1 gm/dL (6.4-8.2)
[2018-05-11 14:38] LABS: TOTAL CELLS COUNTED 100 #CELLS
[2018-05-11 14:39] LABS: PLATELET SUFFICIENCY NORMAL (NORMAL)
[2018-05-11 14:40] LABS: BURR CELLS FEW
[2018-05-11 14:41] LABS: TROPONIN I < 0.015 ng/ml (<0.045)
--- NOTE | 2018-05-11 15:27 | NUR ---
WOUNDS TO THE TOP OF BOTH RIGHT AND LEFT FEET ALSO TO LEFT HEEL. PICTURES WERE OBTAINED.
[2018-05-11 16:33] LABS: BILIRUBIN NEGATIVE (NEGATIVE); BLOOD NEGATIVE (NEGATIVE); CLARITY CLEAR (CLEAR); COLOR YELLOW (YELLOW); GLUCOSE NEGATIVE (NEGATIVE); KETONE NEGATIVE (NEGATIVE); LEUKO ESTERASE NEGATIVE (NEGATIVE); NITRITE NEGATIVE (NEGATIVE); SPECIFIC GRAVITY <= 1.005 (1.005-1.030); UROBILINOGEN 0.2 E.U./dl (0.2-1.0)
[2018-05-11 16:43] LABS: RBC 0-2 rbc/hpf (0-2); WBC 0-2 wbc/hpf (0-5)
[2018-05-11 16:56] VITALS: BP 95/46
[2018-05-11 17:58] VITALS: BP 97/47
--- NOTE | 2018-05-11 18:20 | NUR ---
A 73, admitted to 4E, under the services of FIDEL Santizo MD with a diagnosis of CELLULITUS OF LOWER EXTREMTY AND SEPSIS Chief complaint is NAUSEA AND VOMITING. Patient arrived via ambulatory from ER. Monitor applied. Initial assessment completed. Vital signs taken and recorded. FIDEL SANTIZO MD notified of admission to the unit. Orders received. See assessment for past medical history, medications and allergies. Patient and/or family oriented to unit. [facility] visitation policy reviewed. Clothing/patient valuable form completed. CRISTHIAN BARRERA
--- NOTE | 2018-05-11 18:30 | NUR ---
DR. KAY IN TO SEE PT
--- NOTE | 2018-05-11 18:40 | NUR ---
PT SPOKE WITH 2 NURSES IN REFERENCE TO CODE STATUS. PT WANTS TO CHANGE STATUS TO DNR-CC
[2018-05-11 19:16] VITALS: BP 100/54
[2018-05-11] MEDS ORDERED: OXYCODONE HCL10 M1 PO (19:26)
[2018-05-11] MEDS ORDERED: DULCOLAX5 M1 PO (19:33)
[2018-05-11] MEDS ORDERED: IMODIUM A-D2 M2 PO (19:34)
--- NOTE | 2018-05-11 19:43 | NUR ---
DR. NELSON UPDATED ON MEDICATION REC AVAILABLE FOR REVIEW AT THIS TIME.
[2018-05-11 19:58] VITALS: BP 110/67
--- NOTE | 2018-05-11 20:03 | NUR ---
DR PAIGE AWARE OF CONSULT. NEW WOUND CARE ORDERS OBTAINED.
--- NOTE | 2018-05-11 20:10 | NUR ---
CALLED CONSULT TO DR MAI. ASKED THAT WE HOLD HIS LASIX AND POTASSIUM.
--- NOTE | 2018-05-11 21:55 | NUR ---
ROXICODONE AND RESTORIL GIVEN PER PT REQUEST FOR PAIN ALL OVER RATED AN 8
--- NOTE | 2018-05-11 23:05 | NUR ---
PT SLEEPING; EARLIER PRN MEDICATIONS APPEAR EFFECTIVE.
[2018-05-12] VITALS (7 sets, daily range): BP systolic 94–108; BP diastolic 55–65
--- NOTE | 2018-05-12 04:12 | NUR ---
ROXICODONE GIVEN PER PT REQUEST FOR C/O BLE FOOT PAIN. WILL MONITOR.
--- NOTE | 2018-05-12 09:00 | NUR ---
Major Assembler in to talk to patient. Patient states lives at home with his . There are 3 steps in the home. Physician: Dr. Cummings [facility]acy: [facility] Home health services: [facility] RN/PT Patient's level of ADLs: MINIMAL ASSIST Patient has working utilities: yes DME: walker Follow-up physician's appointment after d/c: he prefers to make his own follow up appt after discharge Does patient want to access PORTAL?: no Discharge plan discussed with patient. He lives at home with his . He is independent in his ADLs and ambulation. Discussed home health care services and he currently has [facility] RN/PT and would like to resume those services up on discharge. When medically stable he will be discharged to home with the resumption of his [facility] services. BETH MARIN
--- NOTE | 2018-05-12 10:57 | NUR ---
PATIENT RECEIVED ROXYCODONE FOR PAIN IN ABDOMEN RATED 7/10.
[2018-05-12 12:33] LABS: BASO # 0.1 10*3/uL (0.0-0.1); BASO % 0.4 % (0.0-1.0); EOS # 0.2 10*3/uL (0.0-0.4); EOS % 0.8 % (1.0-4.0); HEMATOCRIT 34.2 % (42.0-52.0); HEMOGLOBIN 10.9 g/dl (14.0-18.0); LYMPH # 1.3 10*3/uL (1.3-4.4); LYMPH % 6.8 % (27.0-41.0); MEAN CELL VOLUME 88.1 fl (80.0-94.0); MEAN CORPUSCULAR HGB 28.1 pg (27.0-31.0); MEAN CORPUSCULAR HGB CONC 31.9 g/dl (33.0-37.0); MEAN PLATELET VOLUME 8.9 fl (9.6-12.3); MONO # 0.9 10*3/uL (0.1-1.0); MONO % 4.5 % (3.0-9.0); NEUT # 16.8 10*3/uL (2.3-7.9); NEUT % 86.6 % (47.0-73.0); PLATELET COUNT AUTOMATED 426 10*3/uL (130-400); RED BLOOD COUNT 3.88 10*6/uL (4.50-5.90); RED CELL DISTRI WIDTH 14.6 % (0-14.5); WHITE BLOOD COUNT 19.4 10*3/uL (4.8-10.8)
[2018-05-12 12:54] LABS: ALBUMIN 2.4 gm/dl (3.1-4.5); CREATININE 2.18 mg/dL (0.70-1.30); FREE T4 0.77 ng/dl (0.76-1.46); PHOSPHOROUS 3.1 mg/dL (2.5-4.9); POTASSIUM 3.8 mmol/L (3.5-5.1); TOTAL PROTEIN 8.1 gm/dL (6.4-8.2)
[2018-05-12 12:59] LABS: THYROID STIM HORMONE (HS) 4.19 uIU/ml (0.358-4.75)
--- NOTE | 2018-05-12 14:11 | NUR ---
PATIENT REQUESTING FOR THE DRESSINGS NOT TO BE REMOVED DUE TO DR. HAYWOOD JUST SEEING THE PATIENT AND APPLYING THE DRESSINGS. WILL ASSESS AT A LATER TIME.
--- NOTE | 2018-05-12 14:30 | NUR ---
PT ARRIVED FROM VIA W/C. HE'S ALERT AND ORIENTED, AGITATED ABOUT NEEDING A URINAL. SKIN WARM AND DRY. AT THE BEDSIDE. DR RICHARD TALKED WITH PATIENT ABOUT WHAT LIFE SUSTAINING MEASURES HE WANTS AND HE CONSENTED TO IV BOLUS ONLY. DR RICHARD TALKED WITH DR CARDONA AND PATIENT WILL BE TRANSFERRED BACK OUT OF ICCU.
[2018-05-12 14:36] LABS: VITAMIN D, 25-HYDROXY 36.3 ng/mL (30-100)
--- NOTE | 2018-05-12 14:42 | NUR ---
PATIENT TRANSFERRED TO THE ICU PER DR CARDONA'S REQUEST. PATIENT MOVED TO ICCU 6, REPORT GIVEN TO CLIFF CASTRO. NO S/S OF DISTRESS. CALL LIGHT IN PLACE. BED ALARM ARMED.
--- NOTE | 2018-05-12 15:11 | NUR ---
DR PAYNE CALLED ABOUT CONSULT. DR CHANCE TALKING WITH DR PAYNE AT THIS TIME.
--- NOTE | 2018-05-12 15:15 | NUR ---
REPORT BACK TO VIKI WHO HAD BEEN CARING FOR HIM PRIOR TO TRANSFER AND SHE'S TAKING HIM BACK TO 419 VIA BED.
--- NOTE | 2018-05-12 21:04 | NUR ---
PATIENT C/O BILATERAL FOOT PAIN. RATES 12/19. GIVEN PRN ROXICODONE. ALSO GIVEN PRN RESTORIL. WILL CHECK EFFECTIVENESS.
--- NOTE | 2018-05-12 21:14 | NUR ---
DR. NELSON ON FLOOR, OKAY TO HOLD COREG AT THIS TIME. PATIENTS BP 100/58.
[2018-05-13] VITALS: BP 99/44
[2018-05-13 08:00] VITALS: BP 97/56
[2018-05-13 10:48] LABS: BASO # 0.1 10*3/uL (0.0-0.1); BASO % 0.4 % (0.0-1.0); EOS % 0.1 % (1.0-4.0); HEMATOCRIT 28.5 % (42.0-52.0); HEMOGLOBIN 9.2 g/dl (14.0-18.0); LYMPH # 1.4 10*3/uL (1.3-4.4); LYMPH % 6.9 % (27.0-41.0); MEAN CELL VOLUME 88.8 fl (80.0-94.0); MEAN CORPUSCULAR HGB 28.7 pg (27.0-31.0); MEAN CORPUSCULAR HGB CONC 32.3 g/dl (33.0-37.0); MEAN PLATELET VOLUME 8.8 fl (9.6-12.3); MONO # 0.9 10*3/uL (0.1-1.0); MONO % 4.2 % (3.0-9.0); NEUT # 18.3 10*3/uL (2.3-7.9); NEUT % 87.6 % (47.0-73.0); PLATELET COUNT AUTOMATED 363 10*3/uL (130-400); RED BLOOD COUNT 3.21 10*6/uL (4.50-5.90); RED CELL DISTRI WIDTH 14.8 % (0-14.5); WHITE BLOOD COUNT 20.9 10*3/uL (4.8-10.8)
[2018-05-13 12:00] VITALS: BP 105/62
[2018-05-13 13:29] VITALS: BP 94/60
--- NOTE | 2018-05-13 13:29 | NUR ---
PATIENT RECEIVED ROXICODONE FOR PAIN IN THE BILAT FEET RATED 7/10.
[2018-05-13 16:00] VITALS: BP 104/58
--- NOTE | 2018-05-13 17:33 | NUR ---
PATIENT RECEIVED PAIN MEDICATION FOR PAIN IN FEET RATED 8/10.
[2018-05-13 20:00] VITALS: BP 94/60
--- NOTE | 2018-05-13 20:32 | NUR ---
PHARMACY MADE AWARE OF PT'S VANC LATE. WILL RETIME AND RETIME TROUGH. WILL CONTINUE TO MONITOR PT.
[2018-05-13] MEDS ORDERED: AMERINET CHOICE1 GM IV (20:44)
[2018-05-13] MEDS ORDERED: ZOSYN 2.252.25 GM/50 IV (20:44)
[2018-05-14] VITALS: BP 91/61
--- NOTE | 2018-05-14 00:55 | NUR ---
PATIENT IS AWAKE AND ALERT WITH EASY AND REGULAR RESPERS ON ROOM AIR. ASSESSMENT IS COMPLETE WITH NO C/O OR S/S OF DISTRESS NOTED AT THIS TIME. BED IS LOW, LOCKED, ALARMED, AND CALL LIGHT IS WITHIN REACH. SEE SHIFT ASSESSMENT.
[2018-05-14 06:19] LABS: BASO # 0.1 10*3/uL (0.0-0.1); BASO % 0.4 % (0.0-1.0); EOS % 0.1 % (1.0-4.0); HEMATOCRIT 27.3 % (42.0-52.0); HEMOGLOBIN 8.5 g/dl (14.0-18.0); LYMPH % 11.1 % (27.0-41.0); MEAN CELL VOLUME 87.8 fl (80.0-94.0); MEAN CORPUSCULAR HGB 27.3 pg (27.0-31.0); MEAN CORPUSCULAR HGB CONC 31.1 g/dl (33.0-37.0); MEAN PLATELET VOLUME 8.9 fl (9.6-12.3); MONO # 1.1 10*3/uL (0.1-1.0); NEUT # 14.8 10*3/uL (2.3-7.9); NEUT % 81.2 % (47.0-73.0); PLATELET COUNT AUTOMATED 310 10*3/uL (130-400); RED BLOOD COUNT 3.11 10*6/uL (4.50-5.90); RED CELL DISTRI WIDTH 15.1 % (0-14.5); WHITE BLOOD COUNT 18.2 10*3/uL (4.8-10.8)
[2018-05-14 06:50] LABS: CREATININE 2.03 mg/dL (0.70-1.30); POTASSIUM 3.2 mmol/L (3.5-5.1); TOTAL PROTEIN 6.7 gm/dL (6.4-8.2)
--- NOTE | 2018-05-14 06:55 | NUR ---
PATIENTS GLUCOSE [address] MAKI NOTIFIED. PATIENTS NURSE NOTIFIED.
[2018-05-14 08:00] VITALS: BP 102/56
--- NOTE | 2018-05-14 08:30 | NUR ---
PATIENT'S REPEAT BLOOD GLUCOSE LEVEL 162.
--- NOTE | 2018-05-14 10:15 | NUR ---
PATIENT RECEIVED ROXYCODONE FOR PAIN IN FEET RATED 8/10.
[2018-05-14 12:00] VITALS: BP 112/67
--- NOTE | 2018-05-14 14:11 | NUR ---
PATIENT RECEIVED ROXYCODONE FOR PAIN IN FEET RATED 7/10.
[2018-05-14 16:00] VITALS: BP 111/68
--- NOTE | 2018-05-14 16:31 | NUR ---
PATIENT HAS REFUSED FOR ME TO UNWRAP HIS FEET AGAIN TO TAKE DISCHARGE PHOTOS OF HIS WOUNDS.
--- NOTE | 2018-05-14 16:35 | NUR ---
Discharge instructions reviewed with patient/family. Patient receptive and verbalizes understanding. Follow-up care arranged. Written instructions given to patient/family. PATIENT TAKEN FROM FLOOR VIA AMBULANCE SERVICE. NO S/S OF DISTRESS. VIKI JOHNSON
== END 2018-05-14 16:35 | disposition short-term general hospital (02) | DRG 871 ==
LOC: ED 13:38 → 4E 16:51 → EDHOLD 16:51 → 4E 18:07 → ICCU 05-12 14:07 → 4E 05-12 15:13
PROVIDERS: Physician Assistant; Podiatrist; Student in an Organized Health Care Education/Training Program; ADMIT Internal Medicine
PROC: 02HV33Z Insertion of Infusion Device into Superior Vena Cava, Percutaneous Approach (ICD-10-PCS; principal; 2018-05-13)
DX: A41.9 Sepsis, unspecified organism (principal); E43 Unspecified severe protein-calorie malnutrition; N17.0 Acute kidney failure with tubular necrosis; N18.4 Chronic kidney disease, stage 4 (severe); I50.42 Chronic combined systolic (congestive) and diastolic (congestive) heart failure; E87.1 Hypo-osmolality and hyponatremia; I42.9 Cardiomyopathy, unspecified; E87.3 Alkalosis; I13.0 Hypertensive heart and chronic kidney disease with heart failure and stage 1 through stage 4 chronic kidney disease, or unspecified chronic kidney disease; E11.52 Type 2 diabetes mellitus with diabetic peripheral angiopathy with gangrene; I70.263 Atherosclerosis of native arteries of extremities with gangrene, bilateral legs; L03.115 Cellulitis of right lower limb; F41.9 Anxiety disorder, unspecified; Z66 Do not resuscitate; Z51.5 Encounter for palliative care; R10.84 Generalized abdominal pain; A49.02 Methicillin resistant Staphylococcus aureus infection, unspecified site; D64.9 Anemia, unspecified; K80.20 Calculus of gallbladder without cholecystitis without obstruction; I25.10 Atherosclerotic heart disease of native coronary artery without angina pectoris; L97.529 Non-pressure chronic ulcer of other part of left foot with unspecified severity; E11.621 Type 2 diabetes mellitus with foot ulcer; L97.519 Non-pressure chronic ulcer of other part of right foot with unspecified severity; G89.4 Chronic pain syndrome; K57.30 Diverticulosis of large intestine without perforation or abscess without bleeding; E87.6 Hypokalemia; K21.9 Gastro-esophageal reflux disease without esophagitis; E87.8 Other disorders of electrolyte and fluid balance, not elsewhere classified; E11.22 Type 2 diabetes mellitus with diabetic chronic kidney disease; E78.5 Hyperlipidemia, unspecified; Z79.4 Long term (current) use of insulin; Z95.1 Presence of aortocoronary bypass graft; Z91.19 Patient's noncompliance with other medical treatment and regimen; Z95.5 Presence of coronary angioplasty implant and graft; Z87.891 Personal history of nicotine dependence; Z82.49 Family history of ischemic heart disease and other diseases of the circulatory system; Z84.1 Family history of disorders of kidney and ureter; Z83.3 Family history of diabetes mellitus; I25.2 Old myocardial infarction; Z79.82 Long term (current) use of aspirin; Z79.899 Other long term (current) drug therapy; Z68.25 Body mass index [BMI] 25.0-25.9, adult

== ENCOUNTER 2018-06-29 03:09 | Inpatient (IN) | payer OTHER ==
[~2018-06-29] VITALS: Ht 180.3 cm; Wt 85.3 kg
[2018-06-29] VITALS (9 sets, daily range): BP systolic 91–112; BP diastolic 46–64
--- NOTE | ~2018-06-29 | CON ---
[place], [place] REPORT OF CONSULTATION NAME: [id number] UNIT #: [id number] ROOM: 521 DOCTOR: SHIKHA SHANE DPM BIRTHDATE: [birth year] DOS: 06/29/2018 HISTORY OF PRESENT ILLNESS: The patient presents as a 73-year-old male who we have seen previously in the practice. The patient apparently had transmetatarsal amputation performed several weeks ago by Dr. Yates in [place]. The patient also had arterial procedures performed by Dr. Young within the recent time period. CURRENT MEDICAL PROBLEMS: Cellulitis, possible abscess of bilateral foot, general weakness, sepsis and unable to ambulate. PAST MEDICAL HISTORY: Abdominal pain, acute on chronic kidney injury, anemia, bacteria in urine, coronary artery disease, cardiomyopathy, cellulitis of lower extremity, chronic pain syndrome, diverticulitis, combined congestive systolic and diastolic heart failure, essential primary hypertension, fracture of radial head left closed, general weakness, GERD, hyperlipidemia, insomnia, leukocytosis, medical noncompliance, metabolic alkalosis, MRSA infection, normocytic anemia, PA, obesity, sepsis, severe protein-calorie malnutrition, thrombocytosis, tobacco abuse, type 2 diabetes, wound of foot. PAST SURGICAL HISTORY: Angioplasty, cardiac cath, 14 stents, heart artery stents, CABG x 5 in 2008, transmetatarsal amputation of right foot most recently. SOCIAL HISTORY: He chews tobacco. Denies alcohol or illicit drug use. Former smoker. FAMILY HISTORY: Father at age 69, CHF. Mother at age 80s. ALLERGIES: No known allergies. PHYSICAL EXAMINATION: LOWER EXTREMITY EXAMINATION: Pedal pulses are nonpalpable bilateral. The patient has postop TMA site to the right foot with esequiel and sutures intact. There is serous drainage noted with dehiscence of the wound and eschar noted. No signs of definitive abscess, no purulence, no foul odor noted. Localized erythema. The left foot has a wound to the dorsal foot, it is to and through subcutaneous tissue level with serous drainage. No signs of fluctuance or deep abscess. ASSESSMENT: Diabetes with peripheral vascular disease, post- transmetatarsal amputation of right foot with cellulitis and dehiscence, ulceration with cellulitis to dorsal left foot. PLAN: Evaluation and management. Reviewed radiographs. Right foot revealed status post transmetatarsal amputation. Surgical margins appear sharp. Difficult to ascertain if pathological gas or expected postoperative changes. Left foot, questionable subcutaneous gas versus artifact on the lateral view. Clinically correlating with these radiographs, I do not think that acute gas is noted, although I do think surgical intervention with debridement is warranted. [place], [place] REPORT OF CONSULTATION NAME: SUNNY MANCIA UNIT #: [id number] ROOM: 521 DOCTOR: SHIKHA SHANE DPM BIRTHDATE: [birth year] I discussed with the patient and his daughter that we will perform debridement with flushing of the wounds with application of wound VAC unless the patient is transferred to [facility]. Put a call in to Dr. Young to correlate vascular consultation with potential need of more procedures done. Discussed with the patient's daughter that he may progress to a [id number] amputation of the right lower extremity due to failure of the transmetatarsal amputation. We will tentatively put the patient on for surgery tomorrow with Dr. Castro for incision and drainage and debridement of bilateral foot with possible wound VAC application, possible bone debridement if warranted. Discussed the case with Dr. Castro, awaiting for a call from Dr. Young. If he is transferred to [place], the surgery will be delayed and performed again by Dr. Yates at [facility], but at this time we will get him on the books for tomorrow to prevent any worsening of the acute condition. Again, the patient's lactic acid was within normal limits and does not appear to be definitive clinical signs to substantiate need for stat surgical intervention today and thus we will perform it tomorrow unless he is transferred. ADDENDUM I spoke with Dr. Ismael Yates who performed the patient's transmetatarsal amputation of the right foot and debridement of the left foot and also spoke with Dr. Young who performed vascular procedures after extensive discussions with both of the physicians who were agreeable that the patient will probably need a BK amputation of the right lower leg. Dr. Yates had stated that the patient barely had bleeding when the TMA was performed of the right foot and has progressively shown no significant signs of healing after the procedure. The patient was also unable to tolerate a wound VAC, which complicates performing conservative treatment also. Dr. Young will transfer the patient to [facility], perform an arteriogram with possible additional vascular intervention to ascertain if further circulation can be restored to help the patient heal from potential BK amputation and Dr. Yates will be consulted for the left foot also and Dr. Yates was made aware of the transfer and is agreeable to follow the patient at [facility]. I spoke with the podiatry resident regarding the case and we will follow the patient as needed. SHIKHA SHANE DPM CM:CONSTR:REPORT OF CONSULTATION [id number] 06/30/18 0621 interface
--- NOTE | ~2018-06-29 | EKG ---
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
[~2018-06-29 03:09] MED LIST changes: +AMERINET CHOICE1 GM IV; +IMODIUM A-D2 M2 PO; +OXYCODONE HCL10 M1 PO; +ZOSYN 2.252.25 GM/50 IV
[2018-06-29 04:14] LABS: BASO # 0.1 10*3/uL (0.0-0.1); BASO % 0.6 % (0.0-1.0); EOS # 0.2 10*3/uL (0.0-0.4); EOS % 1.7 % (1.0-4.0); HEMOGLOBIN 10.6 g/dl (14.0-18.0); LYMPH # 1.2 10*3/uL (1.3-4.4); LYMPH % 9.3 % (27.0-41.0); MEAN CELL VOLUME 89.2 fl (80.0-94.0); MEAN CORPUSCULAR HGB 28.6 pg (27.0-31.0); MEAN CORPUSCULAR HGB CONC 32.1 g/dl (33.0-37.0); MEAN PLATELET VOLUME 8.3 fl (9.6-12.3); MONO # 1.4 10*3/uL (0.1-1.0); MONO % 11.3 % (3.0-9.0); NEUT # 9.7 10*3/uL (2.3-7.9); NEUT % 76.5 % (47.0-73.0); PLATELET COUNT AUTOMATED 316 10*3/uL (130-400); RED CELL DISTRI WIDTH 15.9 % (0-14.5); WHITE BLOOD COUNT 12.7 10*3/uL (4.8-10.8)
[2018-06-29 04:24] LABS: ACT PARTIAL THROMBO TIME 27.7 SECONDS (20.8-31.5); INTERNATIONAL NORM RATIO 1.1 (2.0-3.5)
[2018-06-29 04:38] LABS: BILIRUBIN NEGATIVE (NEGATIVE); BLOOD NEGATIVE (NEGATIVE); CLARITY CLEAR (CLEAR); COLOR YELLOW (YELLOW); GLUCOSE NEGATIVE (NEGATIVE); KETONE NEGATIVE (NEGATIVE); LEUKO ESTERASE NEGATIVE (NEGATIVE); NITRITE NEGATIVE (NEGATIVE); PH 5.5 (5.0-9.0); SPECIFIC GRAVITY 1.015 (1.005-1.030); UROBILINOGEN 0.2 E.U./dl (0.2-1.0)
[2018-06-29 04:44] LABS: BACTERIA 1+; HYALINE CAST TNTC; RBC 0-2 rbc/hpf (0-2); WBC 0-2 wbc/hpf (0-5)
[2018-06-29 04:49] LABS: ALBUMIN 2.4 gm/dl (3.1-4.5); ALKALINE PHOSPHATASE 78 U/L (45-117); BUN 67 mg/dl (7-24); CHLORIDE 96 mmol/L (98-107); CREATININE 1.95 mg/dL (0.70-1.30); SGOT/AST 16 IU/L (3-35); SGPT/ALT 13 U/L (12-78); SODIUM 137 mmol/L (136-145); TOTAL PROTEIN 7.7 gm/dL (6.4-8.2)
[2018-06-29 04:50] LABS: TROPONIN I < 0.015 ng/ml (<0.045)
--- NOTE | 2018-06-29 05:14 | NUR ---
PATIENT IN BED RESTING WITH EYES CLOSED. AT BEDSIDE. RESP EASY AND NONLABORED. RN WILL CONT TO MONITOR. CALL LIGHT WITHIN REACH
--- NOTE | 2018-06-29 05:47 | NUR ---
PATIENT INFORMED WE ARE WAITING ON THE XRAY TO COME BACK. RN WILL CONT TO MONITOR
--- NOTE | 2018-06-29 07:49 | NUR ---
MEDICATED WITH FENTANYL ORDERED FOR RETURN OF PAIN IN HIS FEET.
--- NOTE | 2018-06-29 09:15 | NUR ---
A 73, admitted to 5E, under the services of NOE Oliveira DO with a diagnosis of CELLULITIS AND ABSCESS OF FOOT,GENERALIZED WEAKNESS.. Chief complaint is WOUNDS AND PAIN TO BILATERAL FEET. Patient arrived via bed from ER. Monitor applied. Initial assessment completed. Vital signs taken and recorded. NOE OLIVEIRA DO notified of admission to the unit. Orders received. See assessment for past medical history, medications and allergies. Patient and/or family oriented to unit. [facility] visitation policy reviewed. Clothing/patient valuable form completed. JOSE FRANCO
--- NOTE | 2018-06-29 09:45 | NUR ---
PT REFUSING ADMISSION WOUND MEASUREMENTS AT THIS TIME.
[2018-06-29] MEDS ORDERED: K-TAB20 MEQ PO (10:36)
[2018-06-29] MEDS ORDERED: LANTUS SOL100 UNIT/1 SQ (10:39)
[2018-06-29] MEDS ORDERED: KLONOPIN0.5 MG PO (10:41)
[2018-06-29] MEDS ORDERED: SANTYL30 GM T (10:41)
[2018-06-29] MEDS ORDERED: FERROUS SULFAT325 MG PO (10:42)
--- NOTE | 2018-06-29 10:43 | NUR ---
MEDS RECONCILED WITH HOME MED LIST PROVIDED BY .
--- NOTE | 2018-06-29 10:47 | NUR ---
NOTIFIED DR WANG OF NEW CONSULT FOR BILATERAL FOOT WOUNDS.
--- NOTE | 2018-06-29 10:53 | NUR ---
NOTIFIED DR COBB'S ANSWERING SERVICE FOR A REACURRING INFECTION, BILATERAL FOOT WOUNDS.
[2018-06-29] MEDS ORDERED: ROXICODONE5 MG PO (11:35)
--- NOTE | 2018-06-29 11:46 | NUR ---
OXY IR 5 MG GIVEN FOR C/O PAIN TO BLE.
--- NOTE | 2018-06-29 12:02 | NUR ---
DR CARDONA ROUNDED AND SEEN PT.
--- NOTE | 2018-06-29 12:11 | NUR ---
DR MIRELES ROUNDED AND SEEN PT, WOUNDS ASSESSED. ORDERS RECIEVED.
--- NOTE | 2018-06-29 12:22 | NUR ---
PT FINALLY AGREED TO ALLOW ADMISSION MEASUREMENTS, THEY WERE OBTAINED PER PROTOCOL.
--- NOTE | 2018-06-29 12:31 | NUR ---
DRESSING CHANGE TO BILATERAL FEET COMPLETED PER PODIATRY ORDER.
--- NOTE | 2018-06-29 12:45 | NUR ---
NOTIFIED DR PAYNE OF NEW CONSULT FOR PVD,FOOT ULCERS.
[2018-06-29] MEDS ORDERED: HUMALOG100 UNIT/2 SQ (16:29)
--- NOTE | 2018-06-29 16:48 | NUR ---
OXYIR 5 MG GIVEMN FOR C/O PAIN TO BLE.01/18.
--- NOTE | 2018-06-29 19:03 | NUR ---
REPORT CALLED TO [place] ON 6TH FLOOR AT [facility]
--- NOTE | 2018-06-29 19:10 | NUR ---
PT D/C'D AND TRANSPORTED TO [facility] TO BED 605-2 FOR CONTINUATION OF CARE. Discharge instructions reviewed with patient/family. Patient receptive and verbalizes understanding. Follow-up care arranged. Written instructions given to patient/family. JOSE FRANCO
--- NOTE | 2018-06-29 19:40 | NUR ---
SPOKE WITH DR PAYNE.REQUESTED I NOTIFY RESIDENT'S FOR D/C AND TRANSFER PT TO [facility] FOR CONTINUATION OF CARE.SPOKE WITH [facility] SUPERVISORT AND BED 605-[address] LOVE AT THIS TIME.
== END 2018-06-29 19:10 | disposition short-term general hospital (02) | DRG 871 ==
LOC: ED 03:09 → 5E 08:29 → EDHOLD 08:29 → 5E 08:33
PROVIDERS: Student in an Organized Health Care Education/Training Program; ADMIT Internal Medicine
DX: A41.9 Sepsis, unspecified organism (principal); E43 Unspecified severe protein-calorie malnutrition; I42.9 Cardiomyopathy, unspecified; N18.4 Chronic kidney disease, stage 4 (severe); I13.0 Hypertensive heart and chronic kidney disease with heart failure and stage 1 through stage 4 chronic kidney disease, or unspecified chronic kidney disease; I50.40 Unspecified combined systolic (congestive) and diastolic (congestive) heart failure; L03.116 Cellulitis of left lower limb; I25.10 Atherosclerotic heart disease of native coronary artery without angina pectoris; K57.90 Diverticulosis of intestine, part unspecified, without perforation or abscess without bleeding; E78.5 Hyperlipidemia, unspecified; K21.9 Gastro-esophageal reflux disease without esophagitis; F17.200 Nicotine dependence, unspecified, uncomplicated; E66.9 Obesity, unspecified; E11.51 Type 2 diabetes mellitus with diabetic peripheral angiopathy without gangrene; G89.4 Chronic pain syndrome; Z95.5 Presence of coronary angioplasty implant and graft; Z95.1 Presence of aortocoronary bypass graft; Z84.1 Family history of disorders of kidney and ureter; Z87.81 Personal history of (healed) traumatic fracture; I25.2 Old myocardial infarction; Z79.4 Long term (current) use of insulin; Z83.3 Family history of diabetes mellitus; Z82.49 Family history of ischemic heart disease and other diseases of the circulatory system; Z79.82 Long term (current) use of aspirin; Z79.84 Long term (current) use of oral hypoglycemic drugs; Z89.431 Acquired absence of right foot; Z68.26 Body mass index [BMI] 26.0-26.9, adult; E11.22 Type 2 diabetes mellitus with diabetic chronic kidney disease

== ENCOUNTER → 2018-12-08 | Outpatient (CLI) | payer OTHER ==
[~2018-12-08] MED LIST changes: +FERROUS SULFAT325 MG PO; +HUMALOG100 UNIT/2 SQ; +KLONOPIN0.5 MG PO; +ROXICODONE5 MG PO; +SANTYL30 GM T
== END | disposition home or self-care (01) ==
LOC: US 01:25
DX: M79.605 Pain in left leg (principal)

== ENCOUNTER → 2019-01-10 | Outpatient (CLI) | payer OTHER | END | disposition home or self-care (01) | LOC: US 02:18 | DX: S91.309A Unspecified open wound, unspecified foot, initial encounter (principal); I73.9 Peripheral vascular disease, unspecified; E11.9 Type 2 diabetes mellitus without complications; I25.10 Atherosclerotic heart disease of native coronary artery without angina pectoris; X58.XXXA Exposure to other specified factors, initial encounter; Y93.89 Activity, other specified; Y92.89 Other specified places as the place of occurrence of the external cause; Y99.8 Other external cause status ==